=== PATIENT | female | born 1985 | race Caucasian/White ===

== ENCOUNTER 2021-04-11 09:01 | Outpatient (REF) | payer MEDICAID, SELFPAY ==
--- NOTE | ~2021-04-11 | XR_ITS ---
EXAMINATION: XR FOOT, LEFT CLINICAL INFORMATION: Left toe pain. COMPARISON: None TECHNIQUE: AP, lateral, and oblique views of the left foot. FINDINGS: The bones and soft tissues are normal. No fracture. Alignment is anatomic. Joint spaces are maintained. XR/XR foot LT min 3V IMPRESSION: Unremarkable examination.
--- NOTE | ~2021-04-11 | XR_ITS ---
EXAMINATION: XR CERVICAL SPINE CLINICAL INFORMATION: Cervicalgia. COMPARISON: None TECHNIQUE: AP, lateral, open-mouth, and bilateral oblique views of the cervical spine. FINDINGS: Straightening of the normal cervical lordosis, which may be positional or related to muscular spasm. Normal atlantoaxial alignment. No acute fracture or subluxation. No loss of vertebral body or intervertebral disc height. No significant neural foraminal stenosis. No lytic or blastic osseous lesion. Unremarkable prevertebral soft tissues. XR/XR cervical spine 4V IMPRESSION: Straightening of the normal cervical lordosis, which may be positional or related to muscular spasm.
== END 2021-04-11 09:02 | disposition home or self-care (01) ==
LOC: HO.XRAY 09:01
PROVIDERS: PCP Internal Medicine Geriatric Medicine; Visit Provider Nurse Practitioner Family
DX: M54.2 Cervicalgia (principal); M79.672 Pain in left foot
CPT/HCPCS: 72050; 73630

== ENCOUNTER 2021-06-06 15:00 | Outpatient (RCR) | payer MEDICAID, SELFPAY | END 2021-06-20 17:31 | disposition home or self-care (01) | LOC: HO.PT 15:00 | PROVIDERS: PCP Internal Medicine Geriatric Medicine; Visit Provider Nurse Practitioner Family | DX: M54.2 Cervicalgia (principal) | CPT/HCPCS: 97012; 97110; 97140; 97161; 97530 ==

== ENCOUNTER → 2022-04-28 09:26 | Outpatient (BNVA) | payer MEDICAID, SELFPAY | PROVIDERS: PCP Internal Medicine Geriatric Medicine; Visit Provider Physician Assistant | DX: M77.8 Other enthesopathies, not elsewhere classified (principal) | CPT/HCPCS: 99202 ==

== ENCOUNTER → 2022-09-04 10:45 | Outpatient (BNVA) | payer MEDICAID, SELFPAY | PROVIDERS: PCP Internal Medicine Geriatric Medicine; Visit Provider Physician Assistant | DX: M77.8 Other enthesopathies, not elsewhere classified (principal) | CPT/HCPCS: 20551; 99212; J1020; J1040 ==

== ENCOUNTER 2022-10-09 10:14 | Outpatient (REF) | payer MEDICAID, SELFPAY ==
--- NOTE | ~2022-10-09 | XR_ITS ---
EXAMINATION: XR HIP, RIGHT CLINICAL INFORMATION: Pain. COMPARISON: None available. TECHNIQUE: Two views of the right hip. FINDINGS: Bones and soft tissues are normal. No fracture. Alignment is anatomic. Hip joint space is maintained. XR/XR hip RT w PEL1V IMPRESSION: Normal right hip.
== END 2022-10-09 10:15 | disposition home or self-care (01) ==
LOC: HO.HOSX 10:14
PROVIDERS: Visit Provider Physician Assistant
DX: M70.61 Trochanteric bursitis, right hip (principal)
CPT/HCPCS: 20610; 73502; 99212; J1040

== ENCOUNTER 2022-10-09 11:30 | Outpatient (RCR) | payer MEDICAID, SELFPAY ==
--- NOTE | 2022-09-18 09:58 | MHC.OT.EP ---
[address] [phone] Occupational Therapy Plan of Care Date of Evaluation: 09/18/22 Diagnosis: Right Elbow Pain Pain Location: Right lateral elbow and moreso in dorsal forearm 4/10 at rest, 8/10 w/ heavier use Pain Score: 4 Pain Scale Used: Numeric (0 - 10) Aggravating Factors: Heavier lifting and use, coldness to elbow Alleviating Factors: Some relief w/ cortisone injection, no change notes w/ CFB or pain patches, prefers not to take pain medicine (some relief when she takes it) Assessment: 36 yo right hand dominant female presents w/ right elbow and forearm pain. She was seen in [facility] and given CFB and Cortisone injection. She has had some relief w/ injection, but notices no significant change w/ CFB wear during work, at times making it worse w/ prolonged wear. On assessment, she reports relief in lateral epicondyle, but has more pain, tenderness and fatigue in dorsal forearm. She has good range, sensation and coordination, but some weakness in gross grasp and wrist extension, w/ tenderness primarily over mobile wad. She will benefit from cont'd therapy services for treatment of right forearm overuse injury, I anticipate she will do well. Frequency and Duration: The patient will be seen 2/xwk for 4 weeks Short Term Goals: Ind w/ HEP Good follow through w/ joint protection/activity modification Trial nighttime orthosis for relief of extensors Prison Goals: Right gross grasp >40lb w/ zero to low pain Pt to demo lift and carry >20lb w/ minimal discomfort in right elbow/forearm Progress to isotonic strengthening prograrm Treatment Plan: Therapeutic Exercise Therapeutic Activity Home Exercise Program Splinting Patient Education ADL Training Ultrasound MHP Soft Tissue Mobilization Kinesiotaping Nighttime resting wrist orthosis Electronically Signed By: Mechelle Arana OTR/Nicolas CHT Please Sign and return to therapist. Thank you once again for your referral.
--- NOTE | 2022-10-13 07:37 | MHC.OT.DC ---
[address] [phone] F: [phone] Occupational Therapy Discharge Note Patient Name: Dottie Reynoso Provider: Cheryl Kaur PA-C Diagnosis: Right Elbow Pain Date of Evaluation: 09/18/22 Date of Discharge: 10/10/22 Treatments to Date: 5 Discharge Status: Achieved Goals Improved Function Independent with HEP Discharge Summary: Melania was referred to OT w/ right lateral elbow and dorsal forearm pain, likely overuse from heavy lifting w/ work tasks. She has been progressing well and is pain free at most times, meeting all her goals. She still gets mild pain w/ end range extension and gripping and reports some weakness w/ opening containers and lifting objects (like placing boxes up above head) but has good awareness of joint protection and avoiding aggravating activities. She would ultimately benefit from change in job positions if they are able to accomodate. Electronically Signed By: JARET Rojas/Nicolas CHT Reviewed/agree with student documentation: Therapist: Please Sign and return to therapist, thank you for your referral.
== END 2022-10-13 07:39 | disposition home or self-care (01) ==
LOC: HO.OT 11:30
PROVIDERS: PCP Internal Medicine Geriatric Medicine; Visit Provider Physician Assistant
DX: M77.8 Other enthesopathies, not elsewhere classified (principal)
CPT/HCPCS: 29125; 97035; 97110; 97140; 97165; 97760

== ENCOUNTER → 2022-11-09 11:34 | Outpatient (BNVA) | payer MEDICAID, SELFPAY | PROVIDERS: PCP Internal Medicine Geriatric Medicine; Visit Provider Physician Assistant | DX: M70.61 Trochanteric bursitis, right hip (principal) | CPT/HCPCS: 99212 ==

== ENCOUNTER 2023-01-08 09:00 | Outpatient (RCR) | payer MEDICAID, SELFPAY ==
--- NOTE | 2022-12-08 14:49 | MHC.PT.EP ---
[facility] [place] Office [place] Office [place] Office [address] Yudy Mena [address] [phone] F: [phone] F: [phone] F: [phone] F: [phone] Physical Therapy Plan of Care Date of Evaluation: Date of Surgery: Diagnosis: RIGHT hip greater trochanteric bursitis Assessment: Patient is a 36 y.o. female who is referred to PT by Cheryl Kaur PA-C, with Dx of RIGHT hip greater trochanteric bursitis. Patient impairments include pain, weakness, gait abnormality. Patient current functional limitations are pain with sleeping, pain with prolonged walking, pain and difficulty with squating and lifting, difficulty sitting on the floor. Patient will benefit from skilled PT to address aforementioned impairments and functional limitations to meet established goals. Frequency and Duration: The patient will be seen 2x/week for 4 weeks Short Term Goals: 2 weeks Patient demonstrates consistency and independence with HEP to self manage symptoms. Patient reports reduction in pain level 4/10 to be able to sleep on involved side. 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 Patient presents with increased R hip flexion 5/5 to be able to get on/off floor without difficulty. Treatment Plan: Modalities to reduce pain, spasms and effusion. Manual therapy to restore motion and function. Therapeutic exercise to improve strength and flexibility. Neuromuscular re-education for posture and balance. Therapeutic activities to return to functional activities of daily living. Electronically signed by: Fish Greer, PT, DPT Please sign and return to therapist. Thank you for your referral.
--- NOTE | 2023-01-26 09:39 | MHC.PT.DC ---
[facility] [place] Office [place] Office [place] Office [address] Yudy Mena 140 [facility] [phone] F: [phone] F: [phone] F: [phone] F: [phone] Physical Therapy Discharge Report Diagnosis: RIGHT hip greater trochanteric bursitis Date of Surgery: Date of Evaluation: 12/08/22 Date of Discharge: 01/26/23 Treatments to Date: 4 Cancellations to Date: 0 No Shows to Date: 5 Discharge Status: Independent with HEP Visit Non-compliance Discharge Summary: Patient ceased attending physical therapy on her own accord and is discharged at this time. She has an independent HEP and was educated on and practice proper lifting mechanics. Electronically signed by: Fish Greer PT, DPT Please sign and return to therapist. Thank you for your referral.
== END 2023-01-26 09:40 | disposition home or self-care (01) ==
LOC: HO.PT 09:00
PROVIDERS: PCP Internal Medicine Geriatric Medicine; Visit Provider Physician Assistant
DX: M70.61 Trochanteric bursitis, right hip (principal)
CPT/HCPCS: 97110; 97140; 97161; 97530

== ENCOUNTER 2023-07-06 13:13 | Outpatient (AMB) | payer MEDICAID, SELFPAY ==
--- NOTE | 2023-07-06 13:15 | MHC.OFFVIS ---
Intake Intake Visit Reasons: ov- Right hip Bursitis Intake Note: Dottie 37 yr old female presents today for her right hip s/p injection from 10/09/22. Patient states that her last injection didnt give her relief. She states that she would like to repeat her injection to see if it would work. Allergies No Known Allergies [No Known Allergies*] Allergy (Verified 11/09/22 11:41) HPI ov- Right hip Bursitis HPI Details 37-year-old right hand dominant female, who is Latvian speaking, presents in the office today for a follow up of right hip pain. I last saw the patient in the office on 11/09/2022 where she was prescribed Diclofenac 75 mg PO BID PRN and referred to physical therapy. She has a cortisone injection in the right hip on 10/09/2022. 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 No ecchymosis, erythema, or edema. Full hip ROM in all planes. Tenderness to palpation over the greater trochanteric bursa. 5/5 strength with resisted hip flexion, knee extension, abduction, and abduction. Able to perform straight leg raise. NVI. Assessment & Plan Assessment & Plan (1) Greater trochanteric bursitis of right hip: Code(s): M70.61 - Trochanteric bursitis, right hip Plan Ms. Tray Reynoso is a 37-year-old right hand dominant female, who is Latvian speaking, presents in the office today for a follow up of right hip pain. I last saw the patient in the office on 11/09/2022 where she was prescribed Diclofenac 75 mg PO BID PRN and referred to physical therapy. She has a cortisone injection in the right hip on 10/09/2022. The patient is going to re-attend physical therapy. She will be prescribed a topical cream. I have placed a referral to Pain Management. Follow up will be PRN, or sooner if needed. Orders: Orders PT Evaluation and Treatment Today M70.61 - Trochanteric bursitis, right hip Referrals Pain Management Referral M70.61 - Trochanteric bursitis, right hip Patient Instructions: Scribed for Cheryl Kaur PA-C by Keyonna Hall medical van driver, on 07/06/2023 at 1:38 pm, EST. Coding Level of Care Code Est Pt Level 3 (96956) Diagnoses Greater trochanteric bursitis of right hip M70.61
== END 2023-07-06 13:40 | disposition home or self-care (01) ==
PROVIDERS: PCP Internal Medicine Geriatric Medicine; Visit Provider Physician Assistant
DX: M70.61 Trochanteric bursitis, right hip (principal)
CPT/HCPCS: 99213

== ENCOUNTER → 2023-07-06 13:13 | Outpatient (BNVA) | payer MEDICAID, SELFPAY | PROVIDERS: PCP Internal Medicine Geriatric Medicine; Visit Provider Physician Assistant | DX: M70.61 Trochanteric bursitis, right hip (principal) | CPT/HCPCS: 99212 ==

== ENCOUNTER 2024-02-28 08:48 | Outpatient (REF) | payer MEDICAID, SELFPAY ==
[2024-02-28 09:22] LABS: MANUAL DIFF FLAG NO
[2024-02-28 09:37] LABS: Basophils Percent Auto 0.3 % (0-2); Eosinophils Absolute Auto 0.1 X10*3/uL (0.0-0.4); Eosinophils Percent Auto 0.7 % (0-4); Hematocrit 41.3 % (37.0-47.0); Hemoglobin 14.3 g/dl (12.0-16.0); Imm Gran Abs Auto 0.04 X10*3/uL (0.00-0.03); Imm Gran Pct Auto 0.6 % (0.0-0.4); Lymphocytes Absolute Auto 1.8 X10*3/uL (1.2-4.9); Lymphocytes Percent Auto 25.4 % (20-40); Mean Corpuscular HGB Conc 34.6 g/dl (31.0-35.0); Mean Corpuscular Hemoglobin 30.8 pg (27.0-33.0); Mean Platelet Volume 10.8 fL (9.4-12.3); Monocytes Absolute Auto 0.5 X10*3/uL (0.1-1.2); Monocytes Percent Auto 6.9 % (2-11); Neutrophils Absolute Auto 4.7 x10*3/uL (2.0-8.3); Neutrophils Percent Auto 66.1 % (45-73); Platelet Count 290 X10*3/uL (160-400); Red Blood Count 4.64 X10*6/uL (4.20-5.50); Red Cell Distribution Width 12.5 % (11.0-16.0); White Blood Count 7.1 X10*3/uL (4.8-10.8)
[2024-02-28 10:11] LABS: Alanine Aminotransferase 20 U/L (0-31); Albumin Level 4.3 g/dL (3.5-5.0); Alkaline Phosphatase 104 U/L (39-117); Anion Gap 11 (12-20); Aspartate Amino Transferase 22 U/L (5-31); Bilirubin Total 0.5 mg/dL (0.0-1.0); Blood Urea Nitrogen 7 mg/dL (9-16); Calcium 9.2 mg/dL (8.4-10.2); Carbon Dioxide 27 mmol/L (22-29); Chloride 108 mmol/L (96-108); Estimated Glomerular Filt Rate > 60; Glucose Random 106 mg/dL (60-115); Potassium 3.5 mmol/L (3.3-5.1); Sodium 142 mmol/L (135-145); Total Protein 7.6 g/dL (6.5-8.0)
[2024-02-28 10:29] LABS: TSH reflex Free T4 1.17 uIU/mL (0.32-4.0)
[2024-02-28 10:36] LABS: Estimated Average Glucose 105 mg/dL; Hemoglobin A1c % 5.3 % (<6.0)
[2024-03-02 08:53] LABS: TS Negative Control Passed; TS Panel A 0; TS Panel B 0; TS Positive Control Passed; TSpotTB Negative (Negative)
== END 2024-02-28 08:49 | disposition home or self-care (01) ==
LOC: HO.LAB 08:48
PROVIDERS: PCP Internal Medicine Geriatric Medicine; Visit Provider Internal Medicine Geriatric Medicine
DX: Z11.1 Encounter for screening for respiratory tuberculosis (principal); I10 Essential (primary) hypertension; R63.5 Abnormal weight gain
CPT/HCPCS: 36415; 80053; 83036; 84443; 85025; 86481

== ENCOUNTER 2024-12-11 08:27 | Emergency (ER) | payer MEDICAID, SELFPAY ==
--- NOTE | ~2024-12-11 | XR_ITS ---
EXAMINATION: XR LUMBOSACRAL SPINE CLINICAL INFORMATION: back pain, pain after lifting COMPARISON: 02/21/2019. TECHNIQUE: Three views of the lumbosacral spine. FINDINGS: No scoliosis. Normal lordosis. Normal alignment. No fracture, compression deformity, or suspicious bone lesion. Normal facet alignment without evidence of significant facet arthropathy. Minimal disc space narrowing noted L5-S1. Disc spaces otherwise normal. The sacrum appears intact. The SI joints have a normal appearance. There is no discrete soft tissue abnormality. XR/XR lumbar spine 2-3V IMPRESSION: 1. No acute bony abnormalities. 2. Early degenerative disc disease L5-S1. Electronically signed by: Jaswinder Huang MD 12/11/2024 09:09 AM EDT
[2024-12-11 08:29] VITALS: BP 171/85; PULSE 86; RESP 18; TEMP 36.4; O2SAT 97; BMI 26.6
--- NOTE | 2024-12-11 08:35 | ED_ITS ---
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 Pain goes across the back. She has no numbness, weakness, loss of control of bowel or bladder, no saddle anesthesia. She is not on IVDA. She has no abdominal pain. She has taken no medications for it. It hurts to walk. MD elicited complaint: back injury Pertinent past history: other Onset (ago): day(s) (1) Timing: progressively worsening Severity: moderate Similar Symptoms Previously: No Quality: dull, aching and throbbing Location: lumbar spine Radiation: none Exacerbating factors: movement and coughing/sneezing Relieving factors: immobilization Context: while lifting Associated symptoms: denies other symptoms Work related injury: Yes Related Data Home Medications ?Medication ?Instructions ?Recorded ?Confirmed ibuprofen 600 mg tablet 600 mg PO TID PRN pain 04/28/22 Previous Rx's ?Medication ?Instructions ?Recorded diclofenac sodium 75 mg 75 mg PO BID PRN pain 30 days #60 04/28/22 tablet,delayed release tabs lidocaine 4 % topical patch 1 patch topical Q24H PRN pain #10 11/09/22 ea diclofenac sodium 75 mg 75 mg PO BID PRN for pain #60 tabs 08/05/23 tablet,delayed release cyclobenzaprine 10 mg tablet 10 mg PO TID PRN muscle spasm #20 12/11/24 tabs lidocaine 5 % topical patch 1 patch topical DAILY #30 ea 12/11/24 Allergies Allergy/AdvReac Type Severity Reaction Status Date / Time No Known Allergies Allergy Verified 12/11/24 08:32 [No Known Allergies*] Review of Systems Review of Systems: Constitutional : No Weight loss, No Fever, No Chills, ENT/Mouth : No Hearing loss, No Ear Pain, No Nasal Congestion, No Sinus Pain, No Hoarseness, No sore throat, No Rhinorrhea, No Swallowing Difficulty Cardiovascular : No Chest Pain, No SOB Respiratory : No Cough, No Dyspnea Gastrointestinal : No Nausea, No Vomiting, No Diarrhea, No abdominal Pain, No Hematochezia, No Melena Genitourinary : No Dysuria, No Urinary Frequency, No Hematuria, No Urinary Incontinence, Musculoskeletal : positive back pain Skin : No Skin Lesions, No rash Neuro : No Weakness, No Numbness, No Paresthesias, no loss of bowel or bladder incontinence, no saddle anesthesia all other systems reviewed and are negative [facility] Past Medical History Attestation statement: The following information was validated with the patient. 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 Oriented X3. No acute distress. Eyes: Pupils equal, round and reactive to light. ENT: Pharynx normal. Neck: Normal inspection. Neck supple. CVS: Normal heart rate and rhythm. Pulses normal. Respiratory: No respiratory distress. Breath sounds normal. Abdomen: Soft and nontender. Back: ttp along bilateral lumbar paraspinals she has a yellow old appearing bruise on R PSIS. There is no hematoma and it is yellow in color Skin: Skin warm and dry. Normal skin color. Normal skin turgor. Extremities: No lower extremity edema. No calf ttp Neuro: Oriented X 3. No motor deficit. No sensory deficit. CN2-12 intact no clonus, 2+ DTR in patella and achilles L5 5/5 bilaterally. SILT intact inner thigh Medications Administered Discontinued Medications Generic Name Dose Route Start Last Admin Trade Name Freq PRN Reason Stop Dose Admin Cyclobenzaprine HCl 10 mg 12/11/24 08:45 12/11/24 09:03 Cyclobenzaprine Hcl 10 Mg Tablet PO 12/11/24 08:46 10 mg ONCE ONE Administration Ketorolac Tromethamine 30 mg 12/11/24 08:45 12/11/24 09:03 Ketorolac Tromethamine 30 Mg/Ml Vial IM 12/11/24 08:46 30 mg ONCE ONE Administration Lidocaine 1 patch 12/11/24 08:45 12/11/24 09:04 Lidocaine 4 % Patch Adh..Patch TRANSDERMA 12/11/24 08:46 1 patch ONCE ONE Administration Protocol Medical Decision Making Medical Decision Making MDM Narrative: 38 yo female with PMH of HTN, tendonitis not on blood thinners here with c/o low back pain after 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 Her bruise is old and not from yesterday during injury - xrays ordered, pain control will DC with work restrictions and back pain control. Differential Diagnosis Differential Diagnoses: The differential diagnosis associated with the presentation includes back strain, contusion, MSK spasm Admission/Observation Consideration of admission/observation: Escalation of care including admission/observation considered able to walk can be DC at home Independent Interpretation I performed an independent interpretation of an: Plain X-Ray (no fx) Radiology Impression Discussion of test interpretation with radiology: I have reviewed the radiologist's reading. External Record Review External record reviewed: Outpatient record Prescription Management I considered prescription management with: Pain Medication and Other Discharge Plan Discharge Clinical Impression: Strain of lumbar region Patient Disposition: Home, Self-Care Instructions: Low Back Strain (ED), Lower Back Exercises (ED) Additional Instructions: return for numbness, weakness, loss of control of bowel or bladder follow up with your doctor is not better in 1 week you may need physical therapy FINDINGS: No scoliosis. Normal lordosis. Normal alignment. No fracture, compression deformity, or suspicious bone lesion. Normal facet alignment without evidence of significant facet arthropathy. Minimal disc space narrowing noted L5-S1. Disc spaces otherwise normal. The sacrum appears intact. The SI joints have a normal appearance. There is no discrete soft tissue abnormality. XR/XR lumbar spine 2-3V IMPRESSION: 1. No acute bony abnormalities. 2. Early degenerative disc disease L5-S1. Prescriptions: New cyclobenzaprine 10 mg tablet 10 mg PO TID PRN (Reason: muscle spasm) Qty: 20 0RF lidocaine 5 % adhesive patch,medicated 1 patch topical DAILY Qty: 30 0RF Rx Instructions: leave on most painful area for up to 12 hrs No Action diclofenac sodium 75 mg tablet,delayed release (DR/EC) 75 mg PO BID PRN (Reason: for pain) Qty: 60 0RF ibuprofen 600 mg tablet 600 mg PO TID PRN (Reason: pain) diclofenac sodium 75 mg tablet,delayed release (DR/EC) 75 mg PO BID PRN (Reason: pain) 30 Days Qty: 60 0RF lidocaine 4 % adhesive patch,medicated 1 patch topical Q24H PRN (Reason: pain) Qty: 10 0RF Rx Instructions: may leave on for up to 12 hrs Referrals: Name,MD Francis [Primary Care Provider] - (if not better in 1 week consult your doctor) Stand Alone Forms: Work/School Release Print Language: Frisian
[2024-12-11] MEDS: Cyclobenzaprine HCl 10 MG TABLET PO (09:03)
[2024-12-11] MEDS: Ketorolac Tromethamine 30 MG/ML VIAL IM (09:03)
[2024-12-11] MEDS: Lidocaine 4 % Patch ADH..PATCH 1 PATCH TRANSDERMA (09:04)
[2024-12-11 09:34] VITALS: BP 171/85; PULSE 86; RESP 18; TEMP 36.4; O2SAT 97
--- OUTSIDE RECORDS SUMMARY | 2024-12-11 09:37 | XMS_ITS | Encounter Summary ---
Author Organization [employer] Address [address] [facility] 7 [place] [address] Care Team Providers Care Personal Care Assistant Name Role Phone Name, Francis SILVA Primary Care Provider [phone] Reason for Visit * Reason Onset Date Comments Med Refill 10/30/2024 Encounter Details Date Type Department Care Team ([facility] st Contact Info) Description 10/30/2024 Refill [facility] [address] [place], [place] [id number] Name, MD Francis [address] [place] [address] Hypertension, essential Social History Tobacco Use Types Packs/Day Years Used Date Smoking Tobacco: Never Passive Smoke Exposure: Never Alcohol Use Standard Drinks/Week Comments Never 0 (1 standard drink = 0.6 oz pur e alcohol) Depression Answer Date Recorded Patient Health Questionnaire-9 Score 0 02/25/2024 Patient Health Questionnaire-9 Score 0 02/25/2024 Last PHQ-9: Questionnaire Data Not on file 0 02/25/2024 Housing Stability Answer Date Recorded What is your housing situation today? I have devorah curran 02/15/[address] you li ve. Do you have problems with any of the following? None of the above 02/15/2024 Food Insecurity Answer Date Recorded Within the past 12 months, y ou worried that your food would run out before you got money to buy more: Never True 02/15/2024 Within the past 12 months,th e food you bought just didn't last and you didn't have enough money to get more: Never True Transportation Answer Date Recorded In the past 12 months, has l ack of transportation kept you from medical appts, meetings, work or from getting things needed for daily living? No 02/15/2024 Utilities Answer Date Recorded In the past 12 months, has t he electric, gas, oil or water company threatened to shut off services in your home? No 02/15/2024 Depression Answer Date Recorded Patient Health Questionnaire-2 Score 0 02/25/2024 Internet Access Answer Date Recorded Internet Access Q1 Yes 03/24/2024 Internet Access Q2 Not on file 03/24/2024 Comments Unknown Sex and Gender Information Value Date Recorded Sex Assigned at Female 05/22/2022 10:32 AM EDT Legal Sex Female 10:32 AM EDT Gender Identity Female 05/22/2022 10:32 AM EDT Sexual Orientation Don't know 05/22/2022 10 :32 AM EDT documented as of this encounter Plan of Treatment Not on file documented as of this encounter Goals Goal Patient Goal Type Associated Problems Recent Progress Patient-Stated? Author Blood Pressure < 140/90 Blood Pressure 162/99( 025 11:54 AM EST) No Puia, Ana M, PharmD Record your blood pressure two to three times weekly Blood Pressure No Puia, Ana M, PharmD documented as of this encounter Visit Diagnoses Diagnosis Hypertension, essential Unspecified essential hypertension documented in this encounter Additional Health Concerns Assessment Noted Time PHQ-9 Depression Total Score: 0 02/25/20 24 3:01 PM EDT documented as of this encounter Care Teams Personal Care Assistant Relationship Specialty Start Date End Date Name, MD Francis [address] [place] [id number] PCP - General Family Medicine 03/15/17 documented as of this encounter
--- OUTSIDE RECORDS SUMMARY | 2024-12-11 09:37 | XMS_ITS | Encounter Summary ---
Author Organization [employer] Address [address] [facility] 7t [place] [address] Care Team Providers Care Cheese Factory Worker Name Role Phone Name, Francis SILVA Primary Care Provider [phone] Encounter Details Date Type Department Care Team (Late st Contact Info) Description 12/11/2024 Orders Only [facility] External Provider, [facility] Social History Tobacco Use Types Packs/Day Years [...] M, PharmD documented as of this encounter Procedures Procedure Name Priority Date/Time Associated Diagnosis Comments XR LUMBAR SPINE 2-3 VIEWS Routine 12/11/2024 8:45 AM EDT documented in this encounter Results * XR Lumbar Spine 2-3 Views (12/11/2024 8:45 AM EDT) Anatomical Region Laterality Modality Spine, L-spine Radiographic Lilli ging 12/11/2024 8:45 AM EDT Narrative 12/11/2024 9:12 AM EDT ? [facility] ?[address] ?[place] [address] ?XRay Report ? Signed ? Patient: Tray Reynoso,Dottie L ?MR ?? #: [id number] ? : 1985 ?Acct:[id number] ? Age/Sex: 38 / F ?ADM Date: 05/22/25 ? Loc: HO.ED ? Attending : ? Ordering Physician: Jessica Wesley DO ?? Date of Service: 12/11/24 ?? Procedure(s): XR lumbar spine 2-3V ?? Accession Number(s): [id number] ? cc: Jessica Wesley DO; Name,Francis SILVA ? EXAMINATION: ?? XR LUMBOSACRAL SPINE ? CLINICAL INFORMATION: ?? back pain, pain after lifting ? COMPARISON: ?? 02/21/2019. ? TECHNIQUE: ?? Three views of the lumbosacral spine. ? FINDINGS: ?? No scoliosis. Normal lordosis. Normal alignment. ?? No fracture, compression deformity, or suspicious bone lesion. ?? Normal facet alignment without evidence of significant facet ?? arthropathy. ?? Minimal disc space narrowing noted L5-S1. Disc spaces otherwise normal. ? The sacrum appears intact. The SI joints have a normal appearance. ? There is no discrete soft tissue abnormality. ? XR/XR lumbar spine 2-3V ?? IMPRESSION: ? 1. No acute bony abnormalities. ?? 2. Early degenerative disc disease L5-S1. ? Electronically signed by: ??Jaswinder Huang MD ??12/11/2024 09:09 AM EDT RP ? Dictated By: ?Jaswinder Huang MD ? Signed By: ?<Electronically signed by Jaswinder Huang MD in OV> ?12/11/24 0909 ? DD/ 0845 ? TD/TT: 12/11/24 0901 ? Hydroelectric Production Manager: ? Procedure Note Tara, Nga - 12/11/2024 [place] [address] XRay Report Signed Patient: Dottie Bonilla LMR #: [id number] : 1985Acct:[id number] Age/Sex: 38 / FADM Date: 12/11/24 Loc: HO.ED Attending Dr: Ordering Physician: Jessica Wesley DO Date of Service: 12/11/24 Procedure(s): XR lumbar spine 2-3V Accession Number(s): [id number] cc: Jessica Wesley DO; Name,Francis SILVA EXAMINATION: XR LUMBOSACRAL SPINE CLINICAL INFORMATION: back pain, pain after lifting COMPARISON: 02/21/2019. TECHNIQUE: Three views of the lumbosacral spine. FINDINGS: No scoliosis. Normal lordosis. Normal alignment. No fracture, compression deformity, or suspicious bone lesion. Normal facet alignment without evidence of significant facet arthropathy. Minimal disc space narrowing noted L5-S1. Disc spaces otherwise normal. The sacrum appears intact. The SI joints have a normal appearance. There is no discrete soft tissue abnormality. XR/XR lumbar spine 2-3V IMPRESSION: 1. No acute bony abnormalities. 2. Early degenerative disc disease L5-S1. Electronically signed by: Jaswinder Huang MD 12/11/2024 09:09 AM EDT RP Dictated By: Jaswinder Huang MD Signed By: <Electronically signed by Jaswinder Huang MD in OV> 12/11/2409 DD/ TD/TT: 12/11/24900 Hydroelectric Production Manager: [facility] External Provider IMG XR PROCEDURES Edited Result - Final documented in this encounter Visit Diagnoses Not on filedocumented in this encounter Additional Health Concerns Assessment Noted Time PHQ-9 Depression Total Score: 0 02/25/20 24 3:01 PM EDT documented as of this encounter Care Teams Cheese Factory Worker Relationship Specialty Start Date End Date Name, MD Francis [address] [place] [address] PCP - General Family Medicine 03/15/17 documented as of this encounter
--- OUTSIDE RECORDS SUMMARY | 2024-12-11 09:37 | XMS_ITS | Encounter Summary ---
Author Organization [employer] Address [address] [facility] 7 [place] [address] Care Team Providers Care Tax Auditor Name Role Phone Name, Francis SILVA Primary Care Provider [phone] Reason for Visit * Reason Onset Date Comments Med Refill 06/01/2024 Encounter Details Date Type Department Care Team ([facility] st Contact Info) Description 06/01/2024 Refill [facility] [address] [place], [place] [phone] Name, MD Francis [address] [place] [address] Social History Tobacco Use Types Packs/Day Years [...] documented as of this encounter Visit Diagnoses Not on filedocumented in this encounter Additional Health Concerns Assessment Noted Time PHQ-9 Depression Total Score: 0 02/25/20 24 3:01 PM EDT documented as of this encounter Care Teams Tax Auditor Relationship Specialty Start Date End Date Name, MD Francis [address] [place] [id number] PCP - General Family Medicine 03/15/17 documented as of this encounter
--- OUTSIDE RECORDS SUMMARY | 2024-12-11 09:37 | XMS_ITS | Encounter Summary ---
Author Organization [employer] Address [address] [facility] 7 [place] [address] Care Team Providers Care Product Controller Name Role Phone Name, Francis SILVA Primary Care Provider [phone] Reason for Visit * Reason Onset Date Comments Med Refill 07/28/2024 Encounter Details Date Type Department Care Team ([facility] st Contact Info) Description 07/28/2024 Telephone [facility] [address] [place], [place] [phone] Name, MD Francis [address] [place] [address] Med Refill Social History Tobacco Use Types Packs/Day Years [...] AM EDT documented as of this encounter Miscellaneous Notes * Telephone Encounter - Symone Rodriguez - 07/28/2024 4:51 PM EST TC from pt requesting medication refill. Medications needing refill : Semaglutide-Weight Management (Wegovy) 1 MG/0.5ML solution auto-injector To be sent to: [facility] documented in this encounter Plan of Treatment Not on [...] documented as of this encounter Care Teams Product Controller Relationship Specialty Start Date End Date Name, MD Francis [address] [place] [address] PCP - General Family Medicine 03/15/17 documented as of this encounter
--- OUTSIDE RECORDS SUMMARY | 2024-12-11 09:37 | XMS_ITS | Encounter Summary ---
Author Organization [employer] Address [address] [facility] 7 [place] [address] Care Team Providers Care Commercial Field Inspector Name Role Phone Name, Francis SILVA Primary Care Provider [phone] Ana M Gr PharmD Unavailable [phone] Reason for Visit * Reason Onset Date Comments Created In Error 04/02/2024 Encounter Details Date Type Department Care Team ([facility] st Contact Info) Description 04/02/2024 Telephone [facility] [address] [place], [place] [phone] Name, MD Francis [address] [place] [address] Created In Error Social History Tobacco Use Types Packs/Day Years [...] documented as of this encounter Care Teams Commercial Field Inspector Relationship Specialty Start Date End Date Name, MD Francis [address] [place] [address] PCP - General Family Medicine 03/15/17 Puia, Ana M, PharmD [address] [place] [address] Pharmacist Internal Medicine 02/02/23 04/24/24 documented as of this encounter
--- OUTSIDE RECORDS SUMMARY | 2024-12-11 09:37 | XMS_ITS | Encounter Summary ---
Author Organization [employer] Address [address] [place] [address] 7 [place] [address] Care Team Providers Care Recruiter Name Role Phone Renée, Francis SILVA Primary Care Provider [phone] Ana M Gr PharmD Unavailable [phone] Reason for Visit * Reason Onset Date Comments Medication Question 01/01/2023 Encounter Details Date Type Department Care Team (Late st Contact Info) Description 01/01/2023 Telephone [facility] [address] [place], [place] [phone] Name, MD Francis [address] [place], [place] [phone] Medication Question Social History Tobacco Use Types Packs/Day Years Used Date Smoking Tobacco: Never Alcohol Use Standard Drinks/Week Comments Never 0 (1 standard drink = 0.6 oz pur e alcohol) Depression Answer Date Recorded Patient Health Questionnaire-9 Score 5 11/30/2022 Depression Answer Date Recorded Patient Health Questionnaire-2 Score 2 11/30/2022 Comments Unknown Sex and Gender Information Value Date Recorded Sex Assigned at Female 05/22/2022 10:32 AM EDT Legal Sex Female 10:32 AM EDT Gender Identity Female 05/22/2022 10:32 AM EDT Sexual Orientation Don't know 05/22/2022 10 :32 AM EDT documented as of this encounter Miscellaneous Notes * Telephone Encounter - Victor Manuel Mendes RN - 01/01/2023 4:44 PM EDT T/C to [phone] through [employer] id - [id number] for below message, pt. States she is all set. Pt. Advised to give call back on [phone] if any questions or concerns. * Telephone Encounter - Michelle Wagnernez - 01/01/2023 8:20 AM EDT Tc from patient requesting a call back, in regards to medications due to upcoming surgery in March. Patient speaks serbian. documented in this encounter Plan of Treatment Not on file documented as of this encounter Visit Diagnoses Not on filedocumented in this encounter Additional Health Concerns Assessment Noted Time PHQ-9 Depression Total Score: 5 12/01/19 23 10:40 AM EDT documented as of this encounter Care Teams Recruiter Relationship Specialty Start Date End Date Name, MD Francis [address] [place] [address] PCP - General Family Medicine 03/15/17 Ana M Gr PharmD [address] [place] [address] Pharmacist Internal Medicine 02/02/23 04/24/24 documented as of this encounter
--- OUTSIDE RECORDS SUMMARY | 2024-12-11 09:37 | XMS_ITS | Encounter Summary ---
Author Organization [employer] Address [address] [facility] 7 [place] [address] Care Team Providers Care Enrolled Nurse Name Role Phone Name, Fracnis SILVA Primary Care Provider [phone] Reason for Visit * Reason Onset Date Comments Med Refill 06/29/2024 Encounter Details Date Type Department Care Team ([facility] st Contact Info) Description 06/29/2024 Refill [facility] [address] [place] [address] Name, MD Francis [address] [place] [address] Social History Tobacco Use Types Packs/Day Years [...] documented as of this encounter Care Teams Enrolled Nurse Relationship Specialty Start Date End Date Name, MD Francis [address] [place] [address] PCP - General Family Medicine 03/15/17 documented as of this encounter
--- OUTSIDE RECORDS SUMMARY | 2024-12-11 09:37 | XMS_ITS | Clinical Summary ---
Author Organization [employer] Address [address] [place] [address] Care Team Providers Care Hydrogenation Operator Name Role Phone Name, Francis SILVA Primary Care Provider [phone] Surgical History Surgery Date Site/Laterality Comments TUBAL LIGATION PROCEDURE: HISTORICAL TUBAL LIGATION HYSTERECTOMY N/A PROCEDURE: HISTORICAL HYSTERECTOMY; COMMENT: Abdominal with B/L salpingectomy; path benign Medical History Medical History Date Comments Patient denies medical problems DX:Patient denies medical problems Family History Medical History Relation Name Comments No Known Problems Brother Thyroid disease Father Hypertension Maternal Grandmother Thyroid disease Mother Hypertension Paternal Grandfather Hypertension Paternal Grandmother Breast cancer Neg Hx Colon cancer Neg Hx Ovarian cancer Neg Hx Pancreatic cancer Neg Hx Prostate cancer Neg Hx Uterine cancer Neg Hx Relation Name Status Comments Brother Alive Father Maternal Grandmother Mother Paternal Grandfather Paternal Grandmother Social History Tobacco Use Types Packs/Day Years Used Date Smoking Tobacco: Never Smokeless Tobacco: Never Alcohol Use Standard Drinks/Week Comments No 0 (1 standard drink = 0.6 oz pur e alcohol) Comments Unknown Sex and Gender Information Value Date Recorded Sex Assigned at Not on file Legal Sex Female 9:02 AM EST Gender Identity Not on file Sexual Orientation Not on file Obstetrics History Last Filed Vital Signs Vital Sign Reading Time Taken Comments Blood Pressure 126/78 10/19/2023 8:58 AM EDT Pulse 73 10/19/2023 8:58 AM EDT Temperature - - Respiratory Rate - - Oxygen Saturation - - Inhaled Oxygen Concentration - - Weight 79.4 kg (175 lb) 10/19/2023 8:58 AM EDT Height 160 cm (5' 3 ) 10/19/2023 8:58 AM EDT Body Mass Index 31 10/19/2023 8:58 AM EDT Plan of Treatment Health Maintenance Due Date Last Done Comments DTaP,Tdap,and Td Vaccines (1 - Tdap) 12/21/2003 Hepatitis B Vaccines (1 of 3 - 19+ 3-dose series) 12/21/2003 Depression Screening 07/02/2022 HIV Screening 07/02/2022 Hepatitis C Screening 07/02/2022 Social Influencers of Health Screening 07/02/2022 COVID-19 Vaccine (1 - 2023-2 5 season) 2024 Cervical Cancer Screening: P ap Smear 09/15/2024 09/15/2021 Influenza Vaccine (Season Ended) 2025 HIB Vaccines Aged Out No longer eligi ble based on patient's age to complete this topic HPV Vaccines Aged Out No longer eligi ble based on patient's age to complete this topic Hepatitis A Vaccines Aged Out No long er eligible based on patient's age to complete this topic IPV Vaccines Aged Out No longer eligi ble based on patient's age to complete this topic MMR Vaccines Aged Out No longer eligi ble based on patient's age to complete this topic Meningococcal ACWY Vaccine Aged Out N o longer eligible based on patient's age to complete this topic Meningococcal B Vaccine Aged Out No l onger eligible based on patient's age to complete this topic Pneumococcal Vaccine: Pediat rics (0 to 5 Years) and At-Risk Patients (6 to 64 Years) Aged Out No longer eligi ble based on patient's age to complete this topic RSV Immunization Patients Un shane 20 months Aged Out No longer eligible b ased on patient's age to complete this topic Varicella Vaccines Aged Out No longer eligible based on patient's age to complete this topic Procedures Procedure Name Priority Date/Time Associated Diagnosis Comments PAP SMEAR Routine 09/15/2021 from Last 3 Months or Most Recently Relevant to Health Maintenance Results * Pap smear (09/15/2021) 09/15/2021 Narrative HISTORICAL TESTING LAB RESULTING AGENCY - 09/27/2021 1:10 PM EST [id number] THINPREP PAP, IMAGED: NEGATIVE FOR SQUAMOUS INTRAEITHELIAL LESION AND MALIGNANCY. TRICHOMONAS IS PRESENT. NOTE: THE PAP TEST IS A SCREENING TEST WITH AN INHERENT FALSE NEGATIVE RATE. AUTOMATED PRESCREENING OF ALL LIQUID BASED SPECIMENS IS PERFORMED BY THE THINPREP IMAGING SYSTEM UNLESS OTHERWISE STATED. RENETTA GREGORIO(ASCP) (CASE ELECTRONICALLY SIGNED 09 27 2021) RESULT OF APTIMA HIGH RISK HPV ASSAY: HIGH RISK HPV: ??NEGATIVE (SEROTYPES 16,18,31,33,35,39,45,51,52,56,58,59,66,68) COMPLETED ON 2021-09-19 ADEQUACY: SATISFACTORY ENDOCERVICAL/TRANSFORMATION ZONE COMPONENT ABSENT. SOURCE: THINPREP PAP HPV ANY DX: ??REFLEX 16 AND 18, CERVICAL, IMAGED CLINICAL INFORMATION: HPV ANY DIAGNOSIS. HORMONES, PAP HX NEGATIVE, Z12.4, Z01.419 Tiarra Zepeda [facility] LAB CYTOLOGY ORDERABLES Final Result HISTORICAL TESTING LAB RESULTING AGENCY from Last 3 Months or Most Recently Relevant to Health Maintenance Care Teams Hydrogenation Operator Relationship Specialty Start Date End Date Name, MD Francis [address] [place], [place] PCP - General 10/26/22
--- OUTSIDE RECORDS SUMMARY | 2024-12-11 09:37 | XMS_ITS | Clinical Summary ---
Author Organization [employer] Address [address] [place] [address] 7 [place] [address] Care Team Providers Care Cook Morning Name Role Phone Name, Francis SILVA Primary Care Provider [phone] Allergies No known active allergies Medications * This document contains information received from the source organization and may not represent a complete record from that organization. Fluocinolone Acetonide Scalp ([place]-Smoothe /FS Scalp) 0.01 % oilIndications :Seborrheic dermatitis Apply on damp scalp at evening time and cover with head covering and wash in the morning 118.28 mL 1 023 Active ibuprofen 800 MG tablet TAKE 1 TABLET (800 MG) BY MOUTH 4 TIMES DAILY. 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 Shake gently. Before first use, prime pump. After use, clean tip and replace cap. 16 g 2 025 2025 Active amLODIPine (Norvasc) 5 MG tabletIndicati ons:Hypertensi on, essential Take 1 tablet (5 mg) by mouth Once daily. 30 tablet 11 025 2025 Active ketoconazole (NIZOral) 2 % shampoo APPLY TOPICALLY 2 TIMES A WEEK. 120 mL 1 025 Active Zepbound 5 MG/0.5ML solution auto-injector INJECT ONE PEN (=5MG) SUBCUTANEOUSLY ONCE A WEEK DIRECTED 2 mL 3 025 Active ketoconazole (NIZOral) 2 % shampoo APPLY TOPICALLY 2 TIMES A WEEK 120 mL 1 024 2024 Discontinued Tirzepatide-We ight Management (Zepbound) 5 MG/0.5ML solution auto-injector Inject 0.5 mL (5 mg) under the skin 1 (one) time per week. 2 mL 3 025 2024 Discontinued Active Problems Problem Noted Date Diagnosed Date S/P MARITZA (total abdominal hysterectomy) Overview (09/27/2023): At [facility] for treatment of fibroid uterus 08/17/2023 Anxiety 01/31/2023 Assessment & Plan (02/05/2023 3:32 PM EDT): Assessment: Patient with nxiety (difficult to control worry, nervousness, and fear that something awful is going to happen). Symptoms are in the context of bio-psychosocial stressors of need for an upcoming surgery with out family or peer support. Patient will benefit from OP therapy and exploring additional coping mechanisms. At this time Dottie Reynoso meets criteria for Visit Diagnoses: Problem List Items Addressed This Visit Other Anxiety Patient ready to address current needs Yes Strengths- Dottie is in the contemplation stage of chanoge PLAN: 1. Follow up with [facility]: Not recommended for follow-up 2. Patient goal is to engage in Op therapy and increase coping mechanisms 3. Behavioral Recommendations a. Deep breathing b. Yoga c. OP therapy Hypertension, essential 11/30/2022 Seborrheic dermatitis 10/11/2020 Encounters Date Type Department Care Team Description 12/11/2024 Orders Only [facility] External Provider, [facility] 11/27/2024 Telephone [facility] [address] [place] [address] Katherine Garcia MA august recall 11/25/2024 Refill [facility] [address] [place] [address] Name, MD Francis 11/23/2024 Refill [facility] [address] [facility] [place] [address] Name, MD Francis 11/12/2024 Telephone [facility] [address] [facility] [place] [address] Farncis Chinchilla MD Prior Authorization 10/30/2024 Refill [facility] [address] [facility] [place] [address] Name, MD Francis Hypertension, essential 10/03/2024 Population Health Risk Score [facility] () Department [address] [place] [phone] Provider, Population Health Generic from Last 3 Months Immunizations Immunization Administration Dates Next Due HepB-CpG 06/08/2023,05/07/2023 06/04/2023 Influenza Injectable Quadriv alant Preservative Free IIV4 MDCK 05/07/2023 Influenza injectable quadriv alent IIV4 with preservative 05/22/2017 Influenza injectable quadrivalent preservative f ree 06/04/2019 Influenza, seasonal, injectable, preservative fr ee 04/28/2024 Moderna Covid-19 Vaccine 12+ 01/03/2021,11/27/19 21 Tdap 03/22/2017 Varicella 02/24/2019 Social History Tobacco Use Types Packs/Day Years Used Date Smoking Tobacco: Never Passive Smoke Exposure: Never Tobacco Cessation:Counseling Given: Not Answered Alcohol Use Standard Drinks/Week Comments Never 0 [...] Don't know 05/22/2022 10 :32 AM EDT Last Filed Vital Signs Vital Sign Reading Time Taken Comments Blood Pressure 162/99 08/14/2024 11:54 AM EST Pulse 67 08/14/2024 11:38 AM EST Temperature 35.1 ??C (95.1 ??F) 08/14/2024 1 1:38 AM EST Respiratory Rate 16 08/14/2024 11:3 8 AM EST Oxygen Saturation 98% 08/14/2024 11: 38 AM EST Inhaled Oxygen Concentration - - Weight 76.6 kg (168 lb 12.8 oz) 025 11:38 AM EST Height 160 cm (5' 3 ) 08/14/2024 11:38 AM EST Body Mass Index 29.9 08/14/2024 11:38 AM EST Plan of Treatment Health Maintenance Due Date Last Done Comments Family Planning (PISQ) 12/21/1999 COVID-19 Vaccine ( season) 2024 01/03/2021, 11/26/2020 SDOH Screening 02/14/2025 02/15/2024 Alcohol/Substance Use Screening 02/24/2025 02/25/2024 Depression Screening 02/24/2025 02/25/2024, 02/25/20 Disability Screening 08/07/2025 08/07/2024 Tobacco Screening 08/14/2025 08/14/2024 Lipid Panel 11/15/2025 11/15/2020, 11/15/2020 DTaP/Tdap/Td Vaccines (2 - Td or Tdap) 03/22/2027 03/22/2017 Zoster Vaccines (1 of 2) 2034 RSV Patients and Patients Aged 60 years or older (1 - 1-dose 75+ series) 12/21/2059 HIV Screening Completed 11/15/2020 Hepatitis C Screening Completed 11/15/2020 Hepatitis B Vaccines Completed 06/08/2023, 05/07/20 Influenza Vaccine Completed 04/28/2024, , 06/04/2019, Additional history exists HIB Vaccines Aged Out No longer eligi [...] patient's age to complete this topic Meningococcal Vaccine Aged Out No sandy fidencio eligible based on patient's age to complete this topic Pneumococcal Vaccine: Pediatrics (0 to 5 Years) and At-Risk Patients (6 to 49) Years) Aged Out No longer eligible based on patient's age to complete this topic RSV under 20 months Aged Out No longe r eligible based on patient's age to complete this topic Rotavirus Vaccines Aged Out No longer eligible based on patient's age to complete this topic Goals Goal Patient Goal Type Associated Problems Recent Progress Patient-Stated? Author Blood Pressure < 140/90 Blood Pressure 162/99( 025 11:54 AM EST) No Puia, Ana M, PharmD Record your blood pressure two to three times weekly Blood Pressure No Puia, Ana M, PharmD Procedures Procedure Name Priority Date/Time Associated Diagnosis Comments XR LUMBAR SPINE 2-3 VIEWS Routine 12/11/2024 8:45 AM EDT ZZZ HISTORICAL HEPATITIS C AB W/REFL TO HCV RNA, QN, PCR Routine 11/15/2020 10:11 AM EDT HIV 1/2 ANTIGEN/ANTIBODY, FOURTH GENERATION W/RFL Routine 11/15/2020 10:11 AM EDT LIPID PANEL, STANDARD Routine 11/15/2020 10:11 AM EDT from Last 3 Months or Most Recently Relevant to Health Maintenance Results * XR Lumbar Spine 2-3 Views (12/11/2024 8:45 AM EDT) Anatomical Region Laterality Modality Spine, L-spine Radiographic Lilli ging 12/11/2024 8:45 AM EDT Narrative 12/11/2024 9:12 AM EDT ? [facility] ?[address] ?[place] [address] ?XRay Report ? Signed ? Patient: Dottie Bonilla ?MR ?? #: [id number] ? : 1985 ?Acct:[id number] ? Age/Sex: 38 / F ?ADM Date: 12/11/24 ? Loc: HO.ED ? Attending Dr: ? Ordering Physician: Jessica Wesley DO ?? Date of Service: 12/11/24 ?? Procedure(s): XR lumbar spine 2-3V ?? Accession Number(s): [id number] ? cc: Jessica Wesley DO; Name,Francis SILVA [...] DD/ 0845 ? TD/TT: 12/11/24 0901 ? Supervisor Particleboard: ? Procedure Note Donotbenjamininterpreter, Image - 12/11/[address] [address] XRay Report Signed Patient: Dottie Bonilla LMR #: [id number] : 1985Acct:[id number] Age/Sex: 38 / FADM Date: 12/11/24 Loc: HO.ED Attending Dr: Ordering Physician: Jessica Wesley DO Date of Service: 12/11/24 Procedure(s): XR lumbar spine 2-3V Accession Number(s): [id number] cc: Jessica Wesley DO; Name,Francis SILVA EXAMINATION: [...] Jaswinder Huang MD 12/11/2024 09:09 AM EDT Dictated By: Jaswinder Huang MD Signed By: <Electronically signed by Jaswinder Huang MD in OV> 12/11/2409 DD/ TD/TT: 12/11/[address] Supervisor Particleboard: [facility] External Provider IMG XR PROCEDURES Edited Result - Final * HEPATITIS C AB W/REFL TO HCV RNA, QN, PCR (11/15/2020 10:11 AM EDT) HEPATITIS C ANTIBODY NON-REACT OMERO NON-REACT OMERO [facility] INDEX 0.02 <1.00 [facility] Comment: ?? HCV antibody was non-reactive. There is no laboratory ?? evidence of HCV infection. ?? In most cases, no further action is required. However, if recent HCV exposure is suspected, a test for HCV RNA (test code 75674) is suggested. ?? For additional information please refer to http://GOkey.Hypejar/faq/PFI13i9 (This link is being provided for informational/ educational purposes only.) ?? 11/15/2020 10:1 1 AM EDT us Francis Name HISTORICAL/NON ORDERABLE LABS Fi nal Result [facility] [address] * HIV 1/2 ANTIGEN/ANTIBODY,FOURTH GENERATION W/RFL (11/15/2020 10:11 AM EDT) HIV-1/2 ANTIGEN AND ANTIBODIES, 4TH GENERATION W/ REFLEX NON-REACT OMERO NON-REACT OMERO [facility] Comment: HIV-1 antigen and HIV-1/HIV-2 antibodies were not detected. There is no laboratory evidence of HIV infection. ?? PLEASE NOTE: This information has been disclosed to you from records whose confidentiality may be protected by state law. ??If your state requires such protection, then the state law prohibits you from making any further disclosure of the information without the specific written consent of the person to whom it pertains, or as otherwise permitted by law. A general authorization for the release of medical or other information is NOT sufficient for this purpose. ? For additional information please refer to http://GOkey.Hypejar/faq/QMX006 (This link is being provided for informational/ educational purposes only.) ? The performance of this assay has not been clinically validated in patients less than 2 years old. ?? 11/15/2020 10:1 1 AM EDT Francis Chinchilla MD LAB BLOOD ORDERABLES Final Resul t Performing Organization Address [facility] de Phone Number [facility] [address] * (ABNORMAL) LIPID PANEL, STANDARD (11/15/2020 10:11 AM EDT) Chol/HDLC Ratio 3.9 <5.0 (calc) [facility] Cholesterol, Total 185 <200 mg/dL [facility] HDL Cholesterol 48(L) > OR = 50 mg/dL [facility] LDL Cholesterol 111(H) mg/dL (calc) [facility] Comment: Reference range: <100 ?? Desirable range <100 mg/dL for primary prevention; ?? <70 mg/dL for patients with CHD or diabetic patients ?? with > or = 2 CHD risk factors. ?? LDL-C is now calculated using the Joe ?? calculation, which is a validated novel method providing ?? better accuracy than the Friedewald equation in the ?? estimation of LDL-C. ?? Colin GONCALVES et al. ANTONI. 2013;310(19): 6127-1702 ?? (http://GOkey.NORCAT/faq/IML063) Non-HDL Cholesterol 137(H) <130 mg/dL (calc) [facility] Comment: For patients with diabetes plus 1 major ASCVD risk ?? factor, treating to a non-HDL-C goal of <100 mg/dL ?? (LDL-C of <70 mg/dL) is considered a therapeutic ?? option. Triglycerides 143 <150 mg/dL [facility] 11/15/2020 10:1 1 AM EDT Francis Chinchilla MD LAB BLOOD ORDERABLES Final Resul t Performing Organization Address [facility] Phone Number [facility] [address] from Last 3 Months or Most Recently Relevant to Health Maintenance Insurance C3 Care Teams Cook Morning Relationship Specialty Start Date End Date Name, MD Francis [address] [place] [id number] PCP - General Family Medicine 03/15/17
== END 2024-12-11 09:35 | disposition home or self-care (01) ==
PROVIDERS: Emergency Provider Emergency Medicine; PCP Internal Medicine Geriatric Medicine
DX: S39.012A Strain of muscle, fascia and tendon of lower back, initial encounter (principal); X50.9XXA Other and unspecified overexertion or strenuous movements or postures, initial encounter; Y93.9 Activity, unspecified; Y92.89 Other specified places as the place of occurrence of the external cause; Y99.0 Civilian activity done for income or pay
CPT/HCPCS: 72100; 96372; 99284; J1885

== ENCOUNTER → 2024-12-11 08:45 | Outpatient (BNV) | payer MEDICAID, SELFPAY | PROVIDERS: Emergency Provider Emergency Medicine; PCP Internal Medicine Geriatric Medicine; Visit Provider Radiology Diagnostic Radiology | DX: M54.50 Low back pain, unspecified (principal) | CPT/HCPCS: 72100 ==

== ENCOUNTER 2025-04-11 10:29 | Outpatient (REF) | payer MEDICAID, SELFPAY ==
--- OUTSIDE RECORDS SUMMARY | 2025-04-06 14:40 | XMS_ITS | Encounter Summary ---
Author Organization [employer] Address [address] [place] [address] Care Team Providers Care Saw Offbearer Name Role Phone Name, Francis SILVA Primary Care Provider [phone] Reason for Visit * Reason Comments Generalized Body Aches Facial Pain sinus Fever Encounter Details Date Type Department Care Team ([facility] Contact Info) Description 04/06/2025 2:40 PM EDT Office Visit [facility] [address] [place], [place] [phone] Nara Holland, ANP [address] [place] [address] Nasal congestion (Primary Dx); Hypertension, essential; Facial pressure Social History Tobacco Use Types Packs/Day Years Used Date Smoking Tobacco: Never Passive Smoke Exposure: Never Smokeless Tobacco: Never Alcohol Use Standard [...] AM EDT documented as of this encounter Last Filed Vital Signs Vital Sign Reading Time Taken Comments Blood Pressure 140/90 04/06/2025 3:41 PM EDT Pulse 72 04/06/2025 3:20 PM EDT Temperature 36.8 C (98.2 F) 04/06/2025 3:20 PM EDT Respiratory Rate 18 04/06/2025 3:20 PM EDT Oxygen Saturation 98% 04/06/2025 3:20 PM EDT Inhaled Oxygen Concentration - - Weight 79.3 kg (174 lb 12.8 oz) 04/06/2025 3:20 PM EDT Height - - Body Mass Index 30.96 02/06/2025 1:35 PM EDT documented in this encounter Progress Notes * KATHERINE Zavala - 04/06/2025 2:40 PM EDT Dottie Reynoso is 39 y.o. patient here today for sick visit. HPI Here today w/ congestion, facial pressure, sore throat initially but this resolved. No fever. Yes chills. Sx started 3d ago. 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 No SOB, MAKI, wheezing. No difficulty or painful swallowing. Non-smoker Took amlodipine this AM. Reports home BP at goal. Ravi LOW provided Croatian interpretation. Review of Systems Constitutional: Positive for chills. Negative for fever. HENT: Positive for congestion. Negative for ear pain, sneezing, sore throat and trouble swallowing. Respiratory: Negative for cough and shortness of breath. Cardiovascular: Negative for chest pain. Gastrointestinal: Negative for constipation and diarrhea. Endocrine: Negative for polydipsia, polyphagia and polyuria. Genitourinary: Negative for dysuria. Musculoskeletal: Negative for arthralgias and myalgias. Problem List[1] Objective BP (!) 140/90 (BP Location: Right arm, Patient Position: Sitting, BP Cuff Size: Large adult) Pulse 72 Temp 98.2 ??F (36.8 ??C) (Oral) Resp 18 Wt 174 lb 12.8 oz (79.3 kg) SpO2 98% BMI 30.96 kg/m?? Physical Exam Vitals reviewed. Constitutional: General: She is not in acute distress. Appearance: Normal appearance. She is not ill-appearing. HENT: Head: Normocephalic and atraumatic. Right Ear: Tympanic membrane, ear canal and external ear normal. Left Ear: Tympanic membrane, ear canal and external ear normal. Nose: Congestion present. Mouth/Throat: Pharynx: No oropharyngeal exudate or posterior oropharyngeal erythema. Eyes: General: No scleral icterus. Extraocular Movements: Extraocular movements intact. Pupils: Pupils are equal, round, and reactive to light. Cardiovascular: Rate and Rhythm: Normal rate and regular rhythm. Pulmonary: Effort: Pulmonary effort is normal. No accessory muscle usage or respiratory distress. Breath sounds: Normal breath sounds. Neurological: Mental Status: She is alert and oriented to person, place, and time. Psychiatric: Mood and Affect: Mood normal. Behavior: Behavior normal. Diagnoses and all orders for this visit: Nasal congestion Recommend hydration, humidification, OTC nasal saline, flonase as needed for congestion acetaminophen for sore throat/fever PRN, cough drops, honey/tea, etc. Call for worsening sx, SOB/MAKI, fever not responding to OTC meds, need for triage. Gave work note for 2d - fluticasone (Flonase) 50 MCG/ACT nasal spray; Administer 2 sprays into each nostril Once per day for 14 days. Shake gently. Before first use, prime pump. After use, clean tip and replace cap. Hypertension, essential BP mildly improved on repeat. Reports home BP is good. Cont amlodipine 10mg Facial pressure Rapid testing negative for COVID/flu - POCT Rapid COVID Ag - Influenza A (ID NOW Rapid Molecular) - Influenza B (ID NOW Rapid Molecular) [1] Patient Active Problem List Diagnosis Seborrheic dermatitis Anxiety Hypertension, essential S/P MARITZA (total abdominal hysterectomy) Strain of lumbar region Right elbow tendonitis Greater trochanteric bursitis of right hip Class 1 obesity due to excess calories with body mass index (BMI) of 31.0 to 31.9 in adult Dietary counseling documented in this encounter Plan of Treatment Not on file documented as of this encounter Goals Goal Patient Goal Type Associated Problems Recent Progress Patient-Stated? Author Blood Pressure < 140/90 Blood Pressure 140/92( 025 11:12 AM EDT) No PuiaBoraAna M, PharmD Record your blood pressure two to three times weekly Blood Pressure No Bora Gryssa, PharmD documented as of this encounter Procedures Procedure Name Priority Date/Time Associated Diagnosis Comments POCT INFLUENZA B (ID NOW RAPID MOLECULAR) Routine 04/06/2025 3:54 PM EDT Facial pressure POCT INFLUENZA A (ID NOW RAPID MOLECULAR) Routine 04/06/2025 3:54 PM EDT Facial pressure POCT RAPID COVID ANTIGEN Routine 04/06/2025 3:54 PM EDT Facial pressure documented in this encounter Results * Influenza B (ID NOW Rapid Molecular) (04/06/2025 3:54 PM EDT) Influenza B Negative Negative, Indeterminate [facility] Swab 04/06/2025 3:54 PM EDT Nara MURPHY POINT OF CARE TEST ENTER/EDIT OR DERABLES Final Result [facility] [address] [place] [phone] * Influenza A (ID NOW Rapid Molecular) (04/06/2025 3:54 PM EDT) Influenza A Negative Negative, Indeterminate [facility] Swab 04/06/2025 3:54 PM EDT Nara Holland ANP POINT OF CARE TEST ENTER/EDIT OR DERABLES Final Result Performing Organization Address [facility] Phone Number [facility] [address] [place] [phone] [phone] * POCT Rapid COVID Ag (04/06/2025 3:54 PM EDT) Rapid COVID Ag Negative [facility] Swab 04/06/2025 3:54 PM EDT Nara Holland ANP POINT OF CARE TEST ENTER/EDIT OR DERABLES Final Result Performing Organization Address [facility] de Phone Number [facility] [address] [place] [phone] documented in this encounter Visit Diagnoses Diagnosis Nasal congestion- Primary Other diseases of nasal cavity and sinuses Hypertension, essential Unspecified essential hypertension Facial pressure documented in this encounter Additional Health Concerns Assessment Noted Time PHQ-9 Depression Total Score: 0 02/25/20 24 3:01 PM EDT documented as of this encounter Care Teams Saw Offbearer Relationship Specialty Start Date End Date Name, MD Francis [address] [place] [phone] PCP - General Family Medicine 03/15/17 documented as of this encounter
--- OUTSIDE RECORDS SUMMARY | 2025-04-10 10:45 | XMS_ITS | Encounter Summary ---
Author Organization [employer] Address [address] [place] [address] Care Team Providers Care Trim Operator Name Role Phone Name, Francis SILVA Primary Care Provider [phone] Reason for Referral * Consultation (Routine) - Pending Review Specialty Diagnoses / Procedures Referred By Eliu wilson Referred To Contact Orthopaedic Surgery Diagnoses Trochanteric bursitis of right hip Cookie Madrigal NP [address] [place] [address] Phone: tel: fax: Referral ID Status Reason Start Date Expiration Date Visits Requested Visits Authorized [id number] Pending Review Specialty Services Required 04/10/2025 04/10/2026 1 1 Reason for Visit * Reason Comments Annual Exam Encounter Details Date Type Department Care Team (Late st Contact Info) Description 04/10/2025 10:45 AM EDT Office Visit [facility] [address], [place] [id number] Cookie Madrigal NP [address] [place] [address] Hypertension, essential (Primary Dx); Healthcare maintenance; Breast screening; Trochanteric bursitis of right hip; Hordeolum externum of right upper eyelid; Pityriasis lichenoides chronica Social History Tobacco Use Types Packs/Day Years Used Date Smoking Tobacco: Never Passive Smoke Exposure: Never Smokeless Tobacco: Never Tobacco Cessation:Counseling Given: Not Answered Alcohol Use Standard Drinks/Week Comments Never 0 (1 standard drink = 0.6 oz pur e alcohol) Depression Answer Date Recorded Patient Health Questionnaire-9 Score 0 04/10/2025 Patient Health Questionnaire-9 Score 0 04/10/2025 Last PHQ-9: Questionnaire Data Not on file 0 04/10/2025 Housing Stability Answer Date Recorded What is your housing situation today? I have devorah curran 04/10/[address] you li ve. Do you have problems with any of the following? None of the above 04/10/2025 Food Insecurity Answer Date Recorded Within the past 12 months, y ou worried that your food would run out before you got money to buy more: Never True 04/10/2025 Within the past 12 months,th e food you bought just didn't last and you didn't have enough money to get more: Never True Transportation Answer Date Recorded In the past 12 months, has l ack of transportation kept you from medical appts, meetings, work or from getting things needed for daily living? No 04/10/2025 Utilities Answer Date Recorded In the past 12 months, has t he electric, gas, oil or water company threatened to shut off services in your home? No 04/10/2025 Depression Answer Date Recorded Patient Health Questionnaire-2 Score 0 04/10/2025 Internet Access Answer Date Recorded Internet Access Q1 No 04/10/2025 Internet Access Q2 I do not want or need it 03/23 Comments No Sex and Gender Information Value Date Recorded Sex Assigned at Female 05/22/2022 10:32 AM EDT Legal Sex Female 10:32 AM EDT Gender Identity Female 05/22/2022 10:32 AM EDT Sexual Orientation Don't know 05/22/2022 10 :32 AM EDT documented as of this encounter Last Filed Vital Signs Vital Sign Reading Time Taken Comments Blood Pressure 140/92 04/10/2025 11:12 AM EDT Pulse 86 04/10/2025 11:12 AM EDT Temperature 36.4 C (97.5 F) 04/10/2025 11:12 AM EDT Respiratory Rate 15 04/10/2025 11:12 AM EDT Oxygen Saturation 98% 04/10/2025 11:12 AM EDT Inhaled Oxygen Concentration - - Weight 78.3 kg (172 lb 9.6 oz) 04/10/2025 11:12 AM EDT Height 160 cm (5' 3 ) 04/10/2025 11:12 AM EDT Body Mass Index 30.57 04/10/2025 11:12 AM EDT documented in this encounter Functional Status * Over the past 2 weeks, how often have you been bothered by any of the following problems? Question Answer Date of Assessment Author Patient Health Questionnaire -2 Score 0 04/10/2025 11:13 AM EDT Rudy Liu MA * Little interest or pleasure in doing things Answer Date of Assessment Author Not at all 04/10/2025 11:13 AM EDT Rudy Liu MA * Feeling down, depressed, or hopeless Answer Date of Assessment Author Not at all 04/10/2025 11:13 AM CASSANDRAT Rudy Liu MA * Trouble falling or staying asleep, or sleeping too much Answer Date of Assessment Author Not at all 04/10/2025 11:13 AM Rudy Mendes MA * Feeling tired or having little energy Answer Date of Assessment Author Not at all 04/10/2025 11:13 AM EDT Rudy Liu MA * Poor appetite or overeating Answer Date of Assessment Author Not at all 04/10/2025 11:13 AM Rudy Mendes MA * Feeling bad about yourself - or that you are a failure or have let yourself or your family down Answer Date of Assessment Author Not at all 04/10/2025 11:13 AM Rudy Mendes MA * Trouble concentrating on things, such as reading the newspaper or watching television Answer Date of Assessment Author Not at all 04/10/2025 11:13 AM EDT Rudy Liu MA * Moving or speaking so slowly that other people could have noticed? Or the opposite - being so fidgety or restless that you have been moving around a lot more than usual. Answer Date of Assessment Author Not at all 04/10/2025 11:13 AM Rudy Mendes MA * Thoughts that you would be better off or hurting yourself in some way Answer Date of Assessment Author Not at all 04/10/2025 11:13 AM Rudy Mnedes MA * Patient Health Questionnaire-9 Score Answer Date of Assessment Author 0 04/10/2025 11:13 AM Rudy Mendes MA documented as of this encounter Progress Notes * Cookie Madrigal NP - 04/10/2025 10:45 AM EDT Subjective: Dottie Reynoso is a 39 y.o. female who presents to the office for a physical exam. Interim history: Home bps are at goal Chronic hip pain, has had injection, complete physical therapy, and pain persists Had severe side effects from zepbound, constant acid reflux which got worse over time, cannot tolerate. Could tolerate wegovy. And would like to resume but not covered by insurance Dottie Reynoso, age 39, female - Stopped Wegovy due to insurance issues - Used Zeffound, developed severe acid reflux and insomnia, discontinued - Right hip pain ongoing for one year, no improvement with physical therapy, no prior injection - Occasional difficulty hearing, no internal ear pain - Right eye redness and swelling, mild pus noted - Scalp eczema, uses prescribed cream as needed - Denies headaches, chest pain, nausea, constipation - No recent hospitalizations - No mental health concerns reported Problem List[1] Surgical History[2] Family History[3] Social History Living situation: daughter and abulea 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 (Menstrual status: Menstrual status unknown). Allergies[4] Review of Systems Constitutional: Negative for chills, fatigue and fever. HENT: Negative for congestion and sore throat. Eyes: Negative for visual disturbance. Respiratory: Negative for cough, shortness of breath and wheezing. Cardiovascular: Negative for chest pain and palpitations. Gastrointestinal: Negative for constipation, diarrhea, nausea and vomiting. Musculoskeletal: Positive for arthralgias. Skin: Negative for rash. Psychiatric/Behavioral: Negative for suicidal ideas. Vitals: 04/10/25 1112 BP: (!) 140/92 BP Location: Left arm Patient Position: Sitting BP Cuff Size: Adult Pulse: 86 Resp: 15 Temp: 97.5 ??F (36.4 ??C) TempSrc: Oral SpO2: 98% Weight: 172 lb 9.6 oz (78.3 kg) Height: 5' 3 (1.6 m) Physical Exam Vitals reviewed. Constitutional: Appearance: She is obese. HENT: Head: Normocephalic and atraumatic. Nose: Nose normal. Eyes: General: Right eye: Hordeolum present. Conjunctiva/sclera: Conjunctivae normal. Cardiovascular: Rate and Rhythm: Normal rate and regular rhythm. Pulmonary: Effort: Pulmonary effort is normal. Breath sounds: Normal breath sounds. Musculoskeletal: Cervical back: Normal range of motion and neck supple. Neurological: General: No focal deficit present. Mental Status: She is alert. Psychiatric: Mood and Affect: Mood normal. - HEENT: Right eye shows mild erythema and edema. Ears are normal. Thyroid examination performed with swallowing. - CARDIOVASCULAR: Heart rate is regular. - MUSCULOSKELETAL: Upper extremity muscle strength assessed; resistance to movement tested. Right hip examination noted. - NEUROLOGIC: Reflexes checked. Assessment & Plan Hypertension, essential Orders: Lipid Panel, Standard; Future Comprehensive Metabolic Panel; Future Hemoglobin A1c; Future Healthcare maintenance Orders: Chlamydia/N. Gonorrhoeae, PCR, Urine HIV-1/2 Antigen and Antibodies, Fourth Generation, with Reflexes; Future Hepatitis C Antibody with Reflex to HCV, RNA, Quantitative, Real-Time PCR; Future RPR (Monitor) with Reflex to Titer; Future Measles, Mumps, and Rubella (MMR) Antibodies (IgG) Panel, Immune Status; Future Breast screening Trochanteric bursitis of right hip Orders: Referral to Orthopaedic Surgery; Future Hordeolum externum of right upper eyelid Orders: erythromycin (Romycin) 5 MG/GM ophthalmic ointment; Apply to affected eye(s) 4 times daily for 10 days. Apply Amount per Dose: 0.5 inch (~1 cm) per dose. Pityriasis lichenoides chronica Orders: betamethasone, augmented, (Diprolene) 0.05 % ointment; APPLY TOPICALLY TWICE A DAY Assessment & Plan Hypertension, essential: - Hypertension present, blood pressure slightly elevated during visit. - Ordered blood work to assess cholesterol, renal function, and average blood glucose. Continue home blood pressure monitoring. Healthcare maintenance: - Ordered blood work for measles, mumps, and rubella as required for form completion. Encouraged healthy diet and regular physical activity. Discussed alcohol, tobacco, and drug use. Offered screening for sexually transmitted infections; urine sample for gonorrhea and chlamydia requested. Breast screening: - Recommendation to initiate breast cancer screening due to age. - Ordered screening mammogram. Advised to report any breast lumps, bumps, or symptoms regardless ofmammogram results. Trochanteric bursitis of right hip: - Trochanteric bursitis of right hip with persistent symptoms despite physical therapy and no improvement. - Referred to orthopedics for further evaluation and management. Discussed possibility of additional injection. Hordeolum externum of right upper eyelid: - Hordeolum externum of right upper eyelid with mild erythema and swelling. - Recommended warm compresses as primary treatment. Prescribed topical medication in case of purulent discharge. Hearing difficulty: - Hearing difficulty possibly related to loud noise exposure, electronics use, or nasal congestion/allergies. - Advised on potential contributing factors. Offered referral to ophthalmology for vision assessment. Eczema: - Eczema with pruritus affecting ear region. - Recommended topical cream application with Q-tip to affected area as needed. Offered refill; advised to obtain from pharmacy if not available in clinic. Prescription - Wegovy (semaglutide) injection, weekly; prior authorization pending due to insurance change; switched back due to severe acid reflux and sleep disturbance - Topical antibiotic ophthalmic ointment for right eye stye; apply a dab with Q- tip to eyelid when purulent discharge, adjunct to warm compresses Appointments - Mammogram for breast cancer screening - Orthopedics consultation for right hip evaluation - Ophthalmology referral for vision evaluation - Dental referral - Blood draw for measles, mumps, rubella serology Routine Screening and Health Maintenance Optometry: No Dentist: Yes Office Visit on 04/06/2025 Component Date Value Ref Range Status Rapid COVID Ag 04/06/2025 Negative Final Influenza A 04/06/2025 Negative Negative, Indeterminate Final Influenza B 04/06/2025 Negative Negative, Indeterminate Final Routine Cancer Screening Breast CA: Cervical CA: Colon CA: Lung CA: Current Medications[5] Immunization History Administered Date(s) Administered HepB-CpG 05/07/2023, 06/08/2023 Influenza Injectable Quadrivalant Preservative Free IIV4 MDCK 05/07/2023 Influenza injectable quadrivalent IIV4 with preservative 05/22/2017 Influenza injectable quadrivalent preservative free 06/04/2019 Influenza, seasonal, injectable, preservative free 04/28/2024 Moderna Covid-19 Vaccine 12+ 11/26/2020, 01/03/2021 Tdap 03/22/2017 Varicella 02/24/2019 Visit Conducted in: Vietnamese Translation by: Provided by [employer] Phone Service ID # [id number] This note was drafted using Ambient (AI) technology. The patient/patient's guardian has been informed and has consented to the use of this technology: Yes Based on our discussion, I have outlined the following instructions for you: - Keep checking your blood pressure at home regularly. - Eat healthy foods and try to be physically active as often as you can. - Be mindful of your use of alcohol, tobacco, and drugs. - Give a urine sample for testing for sexually transmitted infections, including gonorrhea and chlamydia, if you agree to the screening. - If you notice any lumps, bumps, or changes in your breasts, let your healthcare provider know, even if your mammogram results are normal. - If you have ongoing pain in your right hip, you may discuss the possibility of getting an injection for relief. - For the swelling and redness on your right upper eyelid, place a warm, damp cloth over the area several times a day. - If you notice pus coming from your eyelid, use the prescribed ointment or cream as directed. - Think about things that might be affecting your hearing, such as loud noises, electronics, or nasal congestion/allergies. - For itchy skin around your ear, gently apply the prescribed cream with a Q-tip as needed. - If you need more of your eczema cream, you can get a refill at the pharmacy if it???s not available at the clinic. Next appointment(s): - Mammogram for breast cancer screening - Orthopedics consultation for right hip evaluation - Ophthalmology referral for vision evaluation - Dental referral - Blood draw for measles, mumps, rubella serology Thank you again for your visit, and we look forward to supporting you in your journey to better health. [1] Patient Active Problem List Diagnosis Seborrheic dermatitis Anxiety Hypertension, essential S/P MARITZA (total abdominal hysterectomy) Strain of lumbar region Right elbow tendonitis Greater trochanteric bursitis of right hip Class 1 obesity due to excess calories with body mass index (BMI) of 31.0 to 31.9 in adult Dietary counseling Healthcare maintenance Breast screening Trochanteric bursitis of right hip Hordeolum externum of right upper eyelid [2] Past Surgical History: Procedure Laterality Date TUBAL LIGATION [3] No family history on file. [4] No Known Allergies [5] Current Outpatient Medications Medication Sig Dispense Refill amLODIPine (Norvasc) 10 MG tablet Take 1 tablet (10 mg) by mouth Once per day. 30 tablet 11 betamethasone, augmented, (Diprolene) 0.05 % ointment APPLY TOPICALLY TWICE A DAY 45 g 1 erythromycin (Romycin) 5 MG/GM ophthalmic ointment Apply to affected eye(s) 4 times daily for 10 days. Apply Amount per Dose: 0.5 inch (~1 cm) per dose. 3.5 g 0 Fluocinolone Acetonide Scalp (Tyaskin-Smoothe/FS Scalp) 0.01 % oil Apply on damp scalp at evening time and cover with head covering and wash in the morning 118.28 mL 1 fluticasone (Flonase) 50 MCG/ACT nasal spray Administer 2 sprays into each nostril Once per day for14 days. Shake gently. Before first use, prime pump. After use, clean tip and replace cap. 16 g 0 ibuprofen 800 MG tablet TAKE 1 TABLET (800 MG) BY MOUTH 4 TIMES DAILY. 120 tablet 0 ketoconazole (NIZOral) 2 % shampoo APPLY TOPICALLY 2 TIMES A WEEK. 120 mL 1 Semaglutide-Weight Management (Wegovy) 0.25 MG/0.5ML solution auto-injector Inject 0.5 mL (0.25 mg)under the skin 1 (one) time per week for 28 days. 2 mL 0 No current facility-administered medications for this visit. documented in this encounter Miscellaneous Notes * Assessment & Plan Note - Cookie Madrigal NP - 04/10/2025 10:45 AM EDTAssociated Problem(s): Hypertension, essential Orders: Lipid Panel, Standard; Future Comprehensive Metabolic Panel; Future Hemoglobin A1c; Future * Assessment & Plan Note - Cookie Madrigal NP - 04/10/2025 10:45 AM EDTAssociated Problem(s): Healthcare maintenance Orders: Chlamydia/N. Gonorrhoeae, PCR, Urine HIV-1/2 Antigen and Antibodies, Fourth Generation, with Reflexes; Future Hepatitis C Antibody with Reflex to HCV, RNA, Quantitative, Real-Time PCR; Future RPR (Monitor) with Reflex to Titer; Future Measles, Mumps, and Rubella (MMR) Antibodies (IgG) Panel, Immune Status; Future * Assessment & Plan Note - Cookie Madrigal NP - 04/10/2025 10:45 AM EDTAssociated Problem(s): Breast screening * Assessment & Plan Note - Cookie Madrigal NP - 04/10/2025 10:45 AM EDTAssociated Problem(s): Trochanteric bursitis of right hip Orders: Referral to Orthopaedic Surgery; Future * Assessment & Plan Note - Cookie Madrigal NP - 04/10/2025 10:45 AM EDTAssociated Problem(s): Hordeolum externum of right upper eyelid Orders: erythromycin (Romycin) 5 MG/GM ophthalmic ointment; Apply to affected eye(s) 4 times daily for 10 days. Apply Amount per Dose: 0.5 inch (~1 cm) per dose. documented in this encounter Plan of Treatment Scheduled Orders Name Type Priority Associated Diagnoses Orde r Schedule Chlamydia/N. Gonorrhoeae, PCR, Urine Lab Routine Healthcare maintenance Ordered: 04/10/2025 HIV-1/2 Antigen and Antibodies, Fourth Generation, with Reflexes Lab Routine Healthcare maintenance Expected: 04/10/2025 (Approximate), Expires: 04/10/2026 Hepatitis C Antibody with Reflex to HCV, RNA, Quantitative, Real-Time PCR Lab Routine Healthcare maintenance Expected: 04/10/2025, Expires: 04/10/2026 RPR (Monitor) with Reflex to Titer Lab Routine Healthcare maintenance Expected: 04/10/2025, Expires: 04/10/2026 Lipid Panel, Standard Lab Routine Hypertension, essential Expected: 04/10/2025 (Approximate), Expires: 04/10/2026 Comprehensive Metabolic Panel Lab Routine Hypertension, essential Expected: 04/10/2025 (Approximate), Expires: 04/10/2026 Hemoglobin A1c Lab Routine Hypertension, essential Expected: 04/10/2025 (Approximate), Expires: 04/10/2026 Measles, Mumps, and Rubella (MMR) Antibodies (IgG) Panel, Immune Status Lab Routine Healthcare maintenance Expected: 04/10/2025 (Approximate), Expires: 04/10/2026 Scheduled Referrals Name Type Priority Associated Diagnoses Order Schedule Referral to Orthopaedic Surgery Outpatient Referral Routine Trochanteric bursitis of right hip Expected: 04/10/2025 (Approximate), Expires: 04/10/2026 documented as of this encounter Goals Goal Patient Goal Type Associated Problems Recent Progress Patient-Stated? Author Blood Pressure < 140/90 Blood Pressure 140/92( 025 11:12 AM EDT) No Ana M Gr, PharmD Record your blood pressure two to three times weekly Blood Pressure No Ana M Gr, PharmD documented as of this encounter Visit Diagnoses Diagnosis Hypertension, essential- Primary Unspecified essential hypertension Healthcare maintenance Breast screening Breast screening, unspecified Trochanteric bursitis of right hip Hordeolum externum of right upper eyelid Pityriasis lichenoides chronica Parapsoriasis documented in this encounter Additional Health Concerns Assessment Noted Time PHQ-9 Depression Total Score: 0 04/10/20 25 11:13 AM EDT documented as of this encounter Care Teams Trim Operator Relationship Specialty Start Date End Date Name, MD Francis [address] [place] [address] PCP - General Family Medicine 03/15/17 documented as of this encounter
--- OUTSIDE RECORDS SUMMARY | 2025-04-11 10:34 | XMS_ITS | Encounter Summary ---
Author Organization [employer] Address [address] [place] [address] Care Team Providers Care Publications Writer Name Role Phone Name, Francis SILVA Primary Care Provider [phone] Reason for Visit * Reason Onset Date Comments Med Refill 06/29/2024 Encounter Details Date Type Department Care Team ([facility] st Contact Info) Description 06/29/2024 Refill [facility] [address] [place], [place] [id number] Name, MD Francis [address] [place] [address] Social History Tobacco Use Types Packs/Day Years [...] Pressure 140/92( 025 11:12 AM EDT) No Puia, Ana M, PharmD Record your blood pressure two to three times weekly Blood Pressure No Puia, Ana M, PharmD documented as of this encounter Visit Diagnoses Not on filedocumented in this encounter Additional Health Concerns Assessment Noted Time PHQ-9 Depression Total Score: 0 02/25/20 24 3:01 PM EDT documented as of this encounter Care Teams Publications Writer Relationship Specialty Start Date End Date Name, MD Francis [address] [place] [address] PCP - General Family Medicine 03/15/17 documented as of this encounter
--- OUTSIDE RECORDS SUMMARY | 2025-04-11 10:34 | XMS_ITS | Encounter Summary ---
Author Organization [employer] Address [address] [place] [address] Care Team Providers Care Coil Connector Repairer Name Role Phone Name, Francis SILVA Primary Care Provider [phone] Encounter Details Date Type Department Care Team (Latest Contact Info) Description 04/10/2025 Travel Social History Tobacco Use Types Packs/Day Years [...] AM EDT documented as of this encounter Functional Status * Over the [...] 11:13 AM CASSANDRAT Rudy Liu MA * Feeling down, depressed, [...] 04/10/2025 11:13 AM Rudy Mendes MA * Poor appetite or overeating Answer [...] 04/10/2025 11:13 AM Rudy Mendes MA * Moving or speaking so slowly that other people could have noticed? Or the opposite - being so fidgety or restless that you have been moving around a lot more than usual. Answer Date of Assessment Author Not at all 04/10/2025 11:13 AM EDT Rudy iLu MA * Thoughts that you would be better off or hurting yourself in some way Answer Date of Assessment Author Not at all 04/10/2025 11:13 AM EDT Rudy Liu MA * Patient Health Questionnaire-9 Score Answer Date of Assessment Author 0 04/10/2025 11:13 AM EDT Rudy Liu MA documented as of this encounter Plan of Treatment Not on file documented as of this encounter Goals Goal Patient Goal Type Associated Problems Recent Progress Patient-Stated? Author Blood Pressure < 140/90 Blood Pressure 140/92( 025 11:12 AM EDT) No Puia, Ana M, PharmD Record your blood pressure two to three times weekly Blood Pressure No PuiaBoraAna M, PharmD documented as of this encounter Visit Diagnoses Not on filedocumented in this encounter Additional Health Concerns Assessment Noted Time PHQ-9 Depression Total Score: 0 04/10/20 25 11:13 AM EDT documented as of this encounter Care Teams Coil Connector Repairer Relationship Specialty Start Date End Date Name, MD Francis [address] [place] [address] PCP - General Family Medicine 03/15/17 documented as of this encounter
--- OUTSIDE RECORDS SUMMARY | 2025-04-11 10:34 | XMS_ITS | Encounter Summary ---
Author Organization [employer] Address [address] [facility] 7t [place] [address] Care Team Providers Care Fish Cleaner Name Role Phone NameFrancis MD Primary Care Provider [phone] Ana M Gr PharmD Unavailable [phone] Reason for Visit * Reason Onset Date Comments Medication Question 01/01/2023 Encounter Details Date Type Department Care Team ([facility] st Contact Info) Description 01/01/2023 Telephone [facility] MED[facility] [address] [place], [place] [phone] Name, MD Francis [address] [place] [address] Medication Question Social History Tobacco Use Types [...] - 01/01/2023 4:44 PM EDT T/C to [phone] through [employer] id - [id number] for below message, pt. States she is all set. Pt. Advised to give call back on [phone] if any questions or concerns. * Telephone Encounter - Michelle Hernandezz - 01/01/2023 8:20 AM EDT Tc from patient requesting a call back, in regards to medications due to upcoming surgery in March. Patient speaks andorran. documented in this encounter Plan of Treatment Not on file documented as of this encounter Visit Diagnoses Not on filedocumented in this encounter Additional Health Concerns Assessment Noted Time PHQ-9 Depression Total Score: 5 12/01/19 23 10:40 AM EDT documented as of this encounter Care Teams Fish Cleaner Relationship Specialty Start Date End Date Name, MD Francis [address] [place] [address] PCP - General Family Medicine 03/15/17 Ana M Gr PharmD [address] [place] [address] Pharmacist Internal Medicine 02/02/23 04/24/24 documented as of this encounter
--- OUTSIDE RECORDS SUMMARY | 2025-04-11 10:34 | XMS_ITS | Encounter Summary ---
Author Organization [employer] Address [address] [facility] 7t [place] [address] Care Team Providers Care Applied Biology Professor Name Role Phone NameFrancis MD Primary Care Provider [phone] Ana M Gr PharmD Unavailable [phone] Reason for Visit * Reason Onset Date Comments Created In Error 04/02/2024 Encounter Details Date Type Department Care Team ([facility] Contact Info) Description 04/02/[address] [facility] MEDICINE [address] [place], [place] [phone] Name, MD Francis [address] [place] [address] Created In Error Social History Tobacco Use [...] documented as of this encounter Care Teams Applied Biology Professor Relationship Specialty Start Date End Date Name, MD Francis [address] [place] [address] PCP - General Family Medicine 03/15/17 Puia, Ana M, PharmD [address] [place] [address] Pharmacist Internal Medicine 02/02/23 04/24/24 documented as of this encounter
--- OUTSIDE RECORDS SUMMARY | 2025-04-11 10:34 | XMS_ITS | Clinical Summary ---
Author Organization [employer] Address [address] [facility] 7t [place] [address] Care Team Providers Care Lav Crewman Name Role Phone Name, Francis SILVA Primary Care Provider [phone] Allergies No known active allergies Medications * This document contains information received from the source organization and may not represent a complete record from that organization. Fluocinolone Acetonide Scalp ([place]-Smoothe /FS Scalp) 0.01 % oilIndications :Seborrheic dermatitis Apply on damp scalp at evening time and cover with head covering and wash in the morning 118.28 mL 1 023 Active ibuprofen 800 MG tablet TAKE 1 TABLET (800 MG) BY MOUTH 4 TIMES DAILY. 120 tablet 024 Active amLODIPine (Norvasc) 10 MG tablet Take 1 tablet (10 mg) by mouth Once per day. 30 tablet 11 025 2025 Active ketoconazole (NIZOral) 2 % shampoo APPLY TOPICALLY 2 TIMES A WEEK. 120 mL 1 025 Active fluticasone (Flonase) 50 MCG/ACT nasal sprayIndicatio ns:Nasal congestion Administer 2 sprays into each nostril Once per day for 14 days. Shake gently. Before first use, prime pump. After use, clean tip and replace cap. 16 g 025 2024 Active Semaglutide-We ight Management (Wegovy) 0.25 MG/0.5ML solution auto-injector Inject 0.5 mL (0.25 mg) under the skin 1 (one) time per week for 28 days. 2 mL 025 2024 Active erythromycin (Romycin) 5 MG/GM ophthalmic ointmentIndica tions:Hordeolu m externum of right upper eyelid Apply to affected eye(s) 4 times daily for 10 days. Apply Amount per Dose: 0.5 inch (~1 cm) per dose. 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 Shake gently. Before first use, prime pump. After use, clean tip and replace cap. 16 g 2 025 2024 Discontinued(R eorder (will not trigger notification to Pharmacy)) Semaglutide-We ight Management (Wegovy) 0.25 MG/0.5ML solution auto-injector Inject 0.25 mg subcutaneously once a week for weeks 1-4 2 mL 3 025 2024 Discontinued(C ost of medication) Active Problems Problem Noted Date Diagnosed Date Healthcare maintenance 04/10/2025 Assessment & Plan (04/10/2025 1:08 PM EDT): Orders: Chlamydia/N. Gonorrhoeae, PCR, Urine HIV-1/2 Antigen and Antibodies, Fourth Generation, with Reflexes; Future Hepatitis C Antibody with Reflex to HCV, RNA, Quantitative, Real-Time PCR; Future RPR (Monitor) with Reflex to Titer; Future Measles, Mumps, and Rubella (MMR) Antibodies (IgG) Panel, Immune Status; Future Breast screening 04/10/2025 Assessment & Plan (04/10/2025 1:08 PM EDT): Trochanteric bursitis of right hip 04/10/2025 Assessment & Plan (04/10/2025 1:08 PM EDT): Orders: Referral to Orthopaedic Surgery; Future Hordeolum externum of right upper eyelid 025 Assessment & Plan (04/10/2025 1:08 PM EDT): Orders: erythromycin (Romycin) 5 MG/GM ophthalmic ointment; Apply to affected eye(s) 4 times daily for 10 days. Apply Amount per Dose: 0.5 inch (~1 cm) per dose. Strain of lumbar region 02/09/2025 Right elbow tendonitis 02/09/2025 Greater trochanteric bursitis of right hip 02/09 Class 1 obesity due to exces s calories with body mass index (BMI) of 31.0 to 31.9 in adult 02/09/2025 Dietary counseling 02/09/2025 S/P MARITZA (total abdominal hysterectomy) 4 Overview (09/27/2023): At [facility] for treatment of fibroid uterus 08/17/2023 Anxiety [...] of chanoge PLAN: 1. Follow up with [facility]: Not recommended for follow-up 2. Patient goal is to engage in Op therapy and increase coping mechanisms 3. Behavioral Recommendations a. Deep breathing b. Yoga c. OP therapy Hypertension, essential 11/30/2022 Assessment & Plan (04/10/2025 1:08 PM EDT): Orders: Lipid Panel, Standard; Future Comprehensive Metabolic Panel; Future Hemoglobin A1c; Future Seborrheic dermatitis 10/11/2020 Encounters Date Type Department Care Team Description 04/10/2025 10:45 AM EDT Office Visit [facility] [address] [place] [address] Cookie Madrigal NP Hypertension, essential (Primary Dx); Healthcare maintenance; Breast screening; Trochanteric bursitis of right hip; Hordeolum externum of right upper eyelid; Pityriasis lichenoides chronica 04/10/2025 Travel 04/06/2025 2:40 PM EDT Office Visit [facility] [address] [place] [address] Naar Holland ANP Nasal congestion (Primary Dx); Hypertension, essential; Facial pressure 04/06/2025 Travel 04/03/2025 Patient Outreach [facility] [address] [place] [address] Francis Chinchilla MD Pre-visit Planning (SDOH will be completed in office. ) 04/03/2025 Telephone [facility] [address] [place] [address] Francis Chinchilla MD Chart Prep 03/12/2025 Telephone [facility] [address] [place] [address] Francis Chinchilla MD 03/09/2025 Telephone [facility] [address] [place] [address] Francis Chinchilla MD Prior Authorization 02/17/2025 Refill [facility] [address] [place] [address] Francis Chinchilla MD 02/06/2025 1:30 PM EDT Office Visit [facility] [address] [place] [address] Naty Emerson FNP Hypertension, essential (Primary Dx); Dietary counseling; Exercise counseling; Class 1 obesity due to excess calories with body mass index (BMI) of 31.0 to 31.9 in adult, unspecified whether serious comorbidity present 02/06/2025 Travel 02/05/2025 Travel 02/05/2025 Telephone [facility] [address] [place] [address] Jaswant Emersonupe, SANTHOSH Chart Prep 02/02/2025 Telephone [facility] [address] [place] [address] Name, MD Francis Medication Question from Last 3 Months Immunizations Immunization Administration [...] Mass Index 30.57 04/10/2025 11:12 AM EDT Plan of Treatment Health Maintenance Due Date Last Done Comments Family Planning (PISQ) 12/21/1999 HPV Vaccines (1 - 3-dose series) 12/21/1999 Mammogram 2024 COVID-19 Vaccine ( season) 2025 01/03/2021, 11/26/2020 Influenza Vaccine (#1) 2025 , 05/07/2023, 06/04/2019, Additional history exists Lipid Panel 11/15/2025 11/15/2020, 11/15/2020 Disability Screening 02/06/2026 02/06/2025 Alcohol/Substance Use Screening 04/10/2026 04/10/2025 Depression Screening 04/10/2026 04/10/2025, 04/10/20 SDOH Screening 04/10/2026 04/10/2025 Tobacco Screening 04/10/2026 04/10/2025 DTaP/Tdap/Td Vaccines (2 - Td or Tdap) 03/22/2027 03/22/2017 Zoster Vaccines (1 of 2) 2034 RSV Patients and Patients Aged 60 years or older (1 - 1-dose 75+ series) 12/21/2059 HIV Screening Completed 11/15/2020 Hepatitis C Screening Completed 11/15/2020 Hepatitis B Vaccines Completed 06/08/2023, 05/07/20 23 HIB Vaccines Aged Out No longer eligi [...] Years) and At-Risk Patients (6 to 49) Years Aged Out No longer eligible based on [...] Routine 04/06/2025 3:54 PM EDT Facial pressure ZZZ HISTORICAL HEPATITIS C AB W/REFL TO HCV RNA, QN, PCR Routine 11/15/2020 10:11 AM EDT HIV 1/2 ANTIGEN/ANTIBODY, FOURTH GENERATION W/RFL Routine 11/15/2020 10:11 AM EDT LIPID PANEL, STANDARD Routine 11/15/2020 10:11 AM EDT from Last 3 Months or Most Recently Relevant to Health Maintenance Results * Influenza B (ID NOW Rapid Molecular) (04/06/2025 3:54 PM EDT) Influenza B Negative Negative, Indeterminate [facility] Swab 04/06/2025 3:54 PM EDT us Nara Holland ANP POINT OF CARE TEST ENTER/EDIT OR DERABLES Final Result Performing Organization Address [facility]/ZIP Co de Phone Number [facility] [address] [place] [phone] * Influenza A (ID NOW Rapid Molecular) (04/06/2025 3:54 PM EDT) [facility] Influenza A Negative Negative, Indeterminate [facility] Swab 04/06/2025 3:54 PM EDT Nara Holland ANP POINT OF CARE TEST ENTER/EDIT OR DERABLES Final Result Performing Organization Address [facility]/ZIP Co de Phone Number [facility] [address] [place] [phone] * POCT Rapid COVID Ag (04/06/2025 3:54 PM EDT) Rapid COVID Ag Negative [facility] Swab 04/06/2025 3:54 PM EDT us Nara Holland ANP POINT OF CARE TEST ENTER/EDIT OR DERABLES Final Result Performing Organization Address [facility]/ZIP Co de Phone Number [facility] [address] [place] [address] [phone] * HEPATITIS C AB W/REFL TO HCV RNA, QN, PCR (11/15/2020 10:11 AM EDT) HEPATITIS C ANTIBODY NON-REACT OMERO NON-REACT OMERO [facility] INDEX 0.02 <1.00 [facility] Comment: HCV antibody was non-reactive. There is no laboratory evidence of HCV infection. In most cases, no further action is required. However, if recent HCV exposure is suspected, a test for HCV RNA (test code 81934) is suggested. For additional information please refer to http://education.[employer]/faq/TDP86m9 (This link is being provided for informational/ educational purposes only.) 11/15/2020 10:1 1 AM EDT us Francis Name MD HISTORICAL/NON ORDERABLE LABS Fi nal Result [facility] [address] * HIV 1/2 ANTIGEN/ANTIBODY,FOURTH GENERATION W/RFL (11/15/2020 10:11 AM EDT) HIV-1/2 ANTIGEN AND ANTIBODIES, 4TH GENERATION W/ REFLEX NON-REACT OMEOR NON-REACT OMERO [facility] Comment: HIV-1 antigen and HIV-1/HIV-2 antibodies were not detected. There is no laboratory evidence of HIV infection. PLEASE NOTE: This information has been disclosed to you from records whose confidentiality may be protected by state law. If your state requires such protection, then the state law prohibits you from making any further disclosure of the information without the specific written consent of the person to whom it pertains, or as otherwise permitted by law. A general authorization for the release of medical or other information is NOT sufficient for this purpose. For additional information please refer to http://education.[employer]/faq/RNC468 (This link is being provided for informational/ educational purposes only.) The performance of this assay has not been clinically validated in patients less than 2 years old. 11/15/2020 10:1 1 AM EDT Francis Chinchilla MD LAB BLOOD ORDERABLES Final Resul t Performing Organization Address [facility] de Phone Number [facility] [address] * (ABNORMAL) LIPID PANEL, STANDARD (11/15/2020 10:11 AM EDT) Chol/HDLC Ratio 3.9 <5.0 (calc) [facility] Cholesterol, Total 185 <200 mg/dL [facility] HDL Cholesterol 48(L) > OR = 50 mg/dL [facility] LDL Cholesterol 111(H) mg/dL (calc) [facility] Comment: Reference range: <100 Desirable range <100 mg/dL for primary prevention; <70 mg/dL for patients with CHD or diabetic patients with > or = 2 CHD risk factors. LDL-C is now calculated using the Joe calculation, which is a validated novel method providing better accuracy than the Friedewald equation in the estimation of LDL-C. Colin SS et al. ANTONI. 2013;310(19): 1584-4411 (http://education.[employer].GRUZOBZOR/faq/EZH531) Non-HDL Cholesterol 137(H) <130 mg/dL (calc) [facility] Comment: For patients with diabetes plus 1 major ASCVD risk factor, treating to a non-HDL-C goal of <100 mg/dL (LDL-C of <70 mg/dL) is considered a therapeutic option. Triglycerides 143 <150 mg/dL [facility] 11/15/2020 10:1 1 AM EDT Francis Chinchilla MD LAB BLOOD ORDERABLES Final Resul t Performing Organization Address [facility] Co de Phone Number [facility] [address] from Last 3 Months or Most Recently Relevant to Health Maintenance Insurance [facility] C3 Care Teams Lav Crewman Relationship Specialty Start Date End Date Name, MD Francis [address] [place] [phone] PCP - General Family Medicine 03/15/17
--- OUTSIDE RECORDS SUMMARY | 2025-04-11 10:34 | XMS_ITS | Encounter Summary ---
Author Organization [employer] Address [address] [facility] 7t [place] [address] Care Team Providers Care Rolled Seat Trimmer Name Role Phone Name, Francis SILVA Primary Care Provider [phone] Reason for Visit * Reason Onset Date Comments Med Refill 10/30/2024 Encounter Details Date Type Department Care Team ([facility] st Contact Info) Description 10/30/2024 Refill [facility] [address] [place], [place] [phone] Name, MD Francis [address] [place] [address] Hypertension, essential Social History Tobacco Use Types [...] documented as of this encounter Care Teams Rolled Seat Trimmer Relationship Specialty Start Date End Date Name, MD Francis [address] [place] [address] PCP - General Family Medicine 03/15/17 documented as of this encounter
--- OUTSIDE RECORDS SUMMARY | 2025-04-11 10:34 | XMS_ITS | Encounter Summary ---
Author Organization [employer] Address [address] [facility] [address] 7t [place] [address] Care Team Providers Care Chef Instructor Name Role Phone Name, Francis SILVA Primary Care Provider Encounter Details Date Type Department Care Team (Latest Contact Info) Description 04/06/2025 Travel Social History Tobacco Use Types Packs/Day [...] documented as of this encounter Care Teams Chef Instructor Relationship Specialty Start Date End Date Name, MD Francis [address] [place] [address] PCP - General Family Medicine 03/15/17 documented as of this encounter
--- OUTSIDE RECORDS SUMMARY | 2025-04-11 10:34 | XMS_ITS | Encounter Summary ---
Author Organization [employer] Address [address] [facility] 7t [place] [address] Care Team Providers Care Seo Intern Name Role Phone Name, Francis SILVA Primary Care Provider [phone] Reason for Visit * Reason Onset Date Comments Med Refill 06/01/2024 Encounter Details Date Type Department Care Team ([facility] st Contact Info) Description 06/01/2024 Refill [facility]INE [address] [place], [place] [phone] Name, MD Francis [address] [place] [address] Social History Tobacco Use Types Packs/Day Years [...] documented as of this encounter Care Teams Seo Intern Relationship Specialty Start Date End Date Name, MD Francis [address] [place] [address] PCP - General Family Medicine 03/15/17 documented as of this encounter
--- OUTSIDE RECORDS SUMMARY | 2025-04-11 10:34 | XMS_ITS | Clinical Summary ---
Author Organization [employer] Address [address] [place] [address] Care Team Providers Care Panel Assembler Name Role Phone Name, Francis SILVA Primary Care Provider [phone] Surgical History Surgery Date Site/Laterality Comments TUBAL [...] Health Maintenance Due Date Last Done Comments Breast Cancer Screening 1984 DTaP,Tdap,and Td Vaccines (1 - Tdap) 12/21/2003 Hepatitis B Vaccines (1 of 3 - 19+ 3-dose series) 12/21/2003 HIV Screening 07/02/2022 Hepatitis C Screening 07/02/2022 Social Influencers of Health Screening 07/02/2022 Depression Screening 07/23/2024 Cervical Cancer Screening: P ap Smear 09/15/2024 09/15/2021 COVID-19 Vaccine (1 - 2023-2 5 season) 2025 Influenza Vaccine (#1) 2025 RSV Immunization Adult Patie nts (1 - 1-dose 75+ series) 12/21/2059 HIB Vaccines Aged Out No longer eligi [...] 5 Years) and At-Risk Patients (6 to 49 Years) Aged Out No longer eligi ble [...] RESULTING AGENCY - 09/27/2021 1:10 PM EST [id number] THINPREP PAP, IMAGED: NEGATIVE FOR SQUAMOUS INTRAEITHELIAL LESION AND MALIGNANCY. TRICHOMONAS IS PRESENT. NOTE: THE PAP TEST IS A SCREENING TEST WITH AN INHERENT FALSE NEGATIVE RATE. AUTOMATED PRESCREENING OF ALL LIQUID BASED SPECIMENS IS PERFORMED BY THE THINPREP IMAGING SYSTEM UNLESS OTHERWISE STATED. RENETTA GREGORIO(ASCP) (CASE ELECTRONICALLY SIGNED 09 27 2021) RESULT OF APTIMA HIGH RISK HPV ASSAY: HIGH RISK HPV: NEGATIVE (SEROTYPES 16,18,31,33,35,39,45,51,52,56,58,59,66,68) COMPLETED ON 2021-09-19 ADEQUACY: SATISFACTORY ENDOCERVICAL/TRANSFORMATION ZONE COMPONENT ABSENT. SOURCE: THINPREP PAP HPV ANY DX: REFLEX 16 AND 18, CERVICAL, IMAGED CLINICAL INFORMATION: HPV ANY DIAGNOSIS. HORMONES, PAP HX NEGATIVE, Z12.4, Z01.419 Tiarra Zepeda [facility] CYTOLOGY ORDERABLES Final Result HISTORICAL TESTING LAB RESULTING AGENCY from Last 3 Months or Most Recently Relevant to Health Maintenance Care Teams Panel Assembler Relationship Specialty Start Date End Date Name, MD Francis [address] [place] [address] PCP - General 10/26/22
[2025-04-11 11:16] LABS: Hemoglobin A1C 142.7265 umol/L; Total Hemoglobin (HGBA1C) 3647.6095 umol/L
[2025-04-11 11:39] LABS: Alanine Aminotransferase 34 U/L (0-31); Albumin Level 4.4 g/dL (3.5-5.0); Alkaline Phosphatase 106 U/L (39-117); Anion Gap 8 (12-20); Aspartate Amino Transferase 40 U/L (5-31); Blood Urea Nitrogen 8 mg/dL (9-16); Calcium 9.4 mg/dL (8.4-10.2); Carbon Dioxide 29 mmol/L (22-29); Chloride 107 mmol/L (96-108); Cholesterol 227 mg/dL (<200); Estimated Glomerular Filt Rate > 60; HDL Cholesterol 45 mg/dL (>40); Potassium 3.6 mmol/L (3.3-5.1); Sodium 140 mmol/L (135-145); Total Protein 7.4 g/dL (6.5-8.0); Triglycerides 242 mg/dL (<150)
[2025-04-11 11:57] LABS: HIV Num 1 0.05 S/CO (0.00-0.99); ~HepC Num1 0.16 S/CO (0.00-0.79); ~Hepatitis C Antibody Nonreactive (Nonreactive)
[2025-04-13 22:13] LABS: Rubeola IgG (Measles) >300.00 AU/mL
== END 2025-04-11 10:30 | disposition home or self-care (01) ==
LOC: HO.LAB 10:29
PROVIDERS: PCP Nurse Practitioner Family; Visit Provider Nurse Practitioner Family
DX: Z00.00 Encounter for general adult medical examination without abnormal findings (principal); I10 Essential (primary) hypertension; Z11.4 Encounter for screening for human immunodeficiency virus [HIV]
CPT/HCPCS: 36415; 80053; 80061; 83036; 86592; 86735; 86762; 86765; 86803; 87389

== ENCOUNTER 2025-04-16 14:31 | Outpatient (REF) | payer MEDICAID, SELFPAY ==
[2025-04-16 17:52] LABS: CT PCR Urine NOT DETECTED (Not Detect.); NG PCR Urine NOT DETECTED (Not Detect.)
--- OUTSIDE RECORDS SUMMARY | 2025-04-16 18:53 | XMS_ITS | Encounter Summary ---
Author Organization [employer] Address [address] [facility] [address] 7t [place] [address] Care Team Providers Care Potter Or Ceramic Artist Name Role Phone Name, Francis SILVA Primary Care Provider [phone] Encounter Details Date Type Department Care Team ([facility] st Contact Info) Description 04/13/2025 Results Follow-Up [facility] [address] [place], [place] [phone] Cookie Madrigal, ANNABELLA [address] [place] [address] HIV-1/2 Antigen and Antibodies, Fourth Generation, with Reflexes, Hepatitis C Antibody with Reflex to HCV, RNA, Quantitative, Real-Time PCR, Lipid Panel, Standard, Additional followed-up results: 4 Social History Tobacco Use Types Packs/Day Years [...] as of this encounter Miscellaneous Notes * Result Encounter Note - Cookie Madrigal NP - 04/13/2025 9:20 AM EDT It was a pleasure to see you. Your blood work is overall normal. Slightly elevated cholesterol (focus on minimizing processed foods and exercise), pre diabetes and mildly elevated liver function. We will repeat labs in 6 months. Please reach out with any questions. documented in this encounter Plan of Treatment Upcoming Encounters Date Type Department Care Team (Late st Contact Info) Description 06/30/2025 4:00 PM EST Office Visit [facility] [address] [place] [address] Name, MD Francis [address] [place] [address] documented as of this encounter Goals Goal Patient Goal Type Associated Problems Recent Progress Patient-Stated? Author Blood Pressure < 140/90 Blood Pressure 140/92( 025 11:12 AM EDT) No Puia, Ana M, PharmD Record your blood pressure two to three times weekly Blood Pressure No Puarmando Ana M, PharmD documented as of this encounter Visit Diagnoses Not on filedocumented in this encounter Additional Health Concerns Assessment Noted Time PHQ-9 Depression Total Score: 0 04/10/20 25 11:13 AM EDT documented as of this encounter Care Teams Potter Or Ceramic Artist Relationship Specialty Start Date End Date Name, MD Francis [address] [place] [address] PCP - General Family Medicine 03/15/17 documented as of this encounter
--- OUTSIDE RECORDS SUMMARY | 2025-04-16 18:53 | XMS_ITS | Encounter Summary ---
Author Organization [employer] Address [address] [facility] 7t [place] [address] Care Team Providers Care Stone Hand Name Role Phone NameFrancis MD Primary Care Provider [phone] Ana M Gr PharmD Unavailable [phone] Reason for Visit * Reason Onset Date Comments Medication Question 01/01/2023 Encounter Details Date Type Department Care Team ([facility] st Contact Info) Description 01/01/2023 Telephone [facility] [address] [place], [place] [phone] Name, MD Francis [address] [place] [address] Medication Question Social History Tobacco Use Types [...] - 01/01/2023 4:44 PM EDT T/C to [phone] through [employer] id - [id number] for below message, pt. States she is all set. Pt. Advised to give call back on [phone] if any questions or concerns. * Telephone Encounter - Michelle Scott - 01/01/2023 8:20 AM EDT Tc from patient requesting a call back, in regards to medications due to upcoming surgery in March. Patient speaks icelandic. documented in this encounter Plan of Treatment Upcoming Encounters Date Type Department Care Team (Late st Contact Info) Description 06/30/2025 4:00 PM EST Office Visit [facility] [address] [place] [phone] Name, MD Francis [address] [place] [address] documented as of this encounter Visit Diagnoses Not on filedocumented in this encounter Additional Health Concerns Assessment Noted Time PHQ-9 Depression Total Score: 5 12/01/19 23 10:40 AM EDT documented as of this encounter Care Teams Stone Hand Relationship Specialty Start Date End Date Name, MD Francis [address] [place] [address] PCP - General Family Medicine 03/15/17 Ana M Gr PharmD [address] [place] [address] Pharmacist Internal Medicine 02/02/23 04/24/24 documented as of this encounter
--- OUTSIDE RECORDS SUMMARY | 2025-04-16 18:53 | XMS_ITS | Clinical Summary ---
Author Organization [employer] Address [address] [facility] 7t [place] [address] Care Team Providers Care Director Of Strategy & Mobile Name Role Phone Name, Francis SILVA Primary Care Provider [phone] Allergies No known active allergies Medications * This document contains information received from the source organization and may not represent a complete record from that organization. Fluocinolone Acetonide Scalp ([place] /FS Scalp) 0.01 % oilIndications :Seborrheic dermatitis [...] (total abdominal hysterectomy) 4 Overview (09/27/2023): At [facility] for treatment of fibroid uterus 08/17/2023 [...] Encounters Date Type Department Care Team Description 04/15/[address] [address] Francis Chinchilla MD Prior Authorization 04/14/[address] [address] Francis Chinchilla MD Letter for School/Work 04/13/2025 Results Follow-Up [address] [address] Cookie Madrigal NP HIV-1/2 Antigen and Antibodies, Fourth Generation, with Reflexes, Hepatitis C Antibody with Reflex to HCV, RNA, Quantitative, Real-Time PCR, Lipid Panel, Standard, Additional followed-up results: 4 04/10/2025 10:45 AM EDT Office Visit [address] [address] Cookie Madrigal NP Hypertension, essential (Primary Dx); Healthcare maintenance; Breast screening; Trochanteric bursitis of right hip; Hordeolum externum of right upper eyelid; Pityriasis lichenoides chronica 04/10/2025 Travel 04/06/2025 2:40 PM EDT Office Visit [facility] [address] [place] [address] Nara Holland ANP Nasal congestion (Primary Dx); Hypertension, essential; Facial pressure 04/06/2025 Travel 04/03/2025 Patient Outreach [facility] [address] [place] [address] Francis Chinchilla MD Pre-visit Planning (SDOH will be completed in office. ) 04/03/2025 Telephone [facility] [address] [place] [address] Francis Chinchilla MD Chart Prep 03/12/[address] [address] Francis Chinchilla MD 03/09/[address] [address] Francis Chinchilla MD Prior Authorization 02/17/2025 Refill [facility] [address] [place] [address] Name, MD Francis 02/06/2025 1:30 PM EDT Office Visit [facility] [address] [facility] [place] [address] Naty Emerson FNP Hypertension, essential (Primary Dx); Dietary counseling; Exercise counseling; Class 1 obesity due to excess calories with body mass index (BMI) of 31.0 to 31.9 in adult, unspecified whether serious comorbidity present 02/06/2025 Travel 02/05/2025 Travel 02/05/2025 Telephone [facility] [address] [place] [address] Naty Emerson FNP Chart Prep 02/02/[address] [facility] [address] [place] [address] NameFrancis MD Medication Question from Last 3 Months Immunizations [...] 04/10/2025 11:12 AM EDT Plan of Treatment Upcoming Encounters Date Type Department Care Team (Late st Contact Info) Description 06/30/2025 4:00 PM EST Office Visit [facility] [address] [place] [address] Name, MD Francis [address] [place] [address] Health Maintenance Due Date Last Done Comments Family Planning (PISQ) 12/21/1999 HPV Vaccines (1 - 3-dose series) 12/21/1999 Mammogram 2024 COVID-19 Vaccine (3 - 2024- season) 2025 01/03/2021, 11/26/2020 Influenza Vaccine (#1) 2025 , 05/07/2023, 06/04/2019, Additional history exists Disability Screening 02/06/2026 02/06/2025 Alcohol/Substance Use Screening 04/10/2026 04/10/2025 Depression Screening 04/10/2026 04/10/2025, 04/10/20 25 SDOH Screening 04/10/2026 04/10/2025 Tobacco Screening 04/10/2026 04/10/2025 Diabetes: Hemoglobin A1C 04/11/2026 025, 02/28/2024, 11/15/2020, Additional history exists DTaP/Tdap/Td Vaccines (2 - Td or Tdap) 03/22/2027 03/22/2017 Lipid Panel 04/11/2030 04/11/2025, 10/22, 11/15/2020 Zoster Vaccines (1 of 2) 2034 RSV Patients and Patients Aged 60 years or older (1 - 1-dose 75+ series) 12/21/2059 Hepatitis B Vaccines Completed 06/08/2023, 05/07/20 23 HIV Screening Completed 04/11/2025, 11/15/2020 Hepatitis C Screening Completed 04/11/2025, 021 HIB Vaccines Aged Out No longer eligi [...] Procedure Name Priority Date/Time Associated Diagnosis Comments CHLAMYDIA/TRICHOMONAS/ NEISSERIA GONORRHOEAE, PCR, URINE Routine 04/16/2025 2:40 PM EDT Healthcare maintenance MEASLES, MUMPS, AND RUBELLA (MMR) AB (IGG) PANEL, IMMUNE STATUS Routine 04/11/2025 10:45 AM EDT Healthcare maintenance HEMOGLOBIN A1C Routine 04/11/2025 10:45 AM EDT Hypertension, essential COMPREHENSIVE METABOLIC PANEL Routine 04/11/2025 10:45 AM EDT Hypertension, essential LIPID PANEL, STANDARD Routine 04/11/2025 10:45 AM EDT Hypertension, essential RPR (MONITOR) W/REFL TITER Routine 04/11/2025 10:45 AM EDT Healthcare maintenance HEPATITIS C AB W/REFL TO HCV RNA, QN, PCR Routine 04/11/2025 10:45 AM EDT Healthcare maintenance HIV 1/2 ANTIGEN/ANTIBODY, FOURTH GENERATION W/RFL Routine 04/11/2025 10:45 AM EDT Healthcare maintenance POCT INFLUENZA B (ID NOW RAPID MOLECULAR) Routine 04/06/2025 3:54 PM EDT Facial pressure POCT INFLUENZA A (ID NOW RAPID MOLECULAR) Routine 04/06/2025 3:54 PM EDT Facial pressure POCT RAPID COVID ANTIGEN Routine 04/06/2025 3:54 PM EDT Facial pressure from Last 3 Months Results * Chlamydia/N. Gonorrhoeae, PCR, Urine (04/16/2025 2:40 PM EDT) CT PCR, Urine NOT DETECTED Not Detect. [facility] Comment:A not detected test result does not exclude the possibilityof infection because test results can be affected byimproper specimen collection, concurrent antibiotic therapy,or the number of organisms in the specimen which may bebelow the sensitivity of the test. As with many diagnostictests, results from the Xpert CT/NG assay should beinterpreted in conjunction with other laboratory andclinical data available to the clinician.The Xpert CT/NG assay should not be used for the evaluationof suspected sexual abuse or for other medico-legalindications. Additional testing is recommended in anycircumstance when false positive or false negative resultscould lead to adverse medical, social or psychologicalconsequences. NG PCR, Urine NOT DETECTED Not Detect. [facility] Comment:A not detected test result does not exclude the possibilityof infection because test results can be affected byimproper specimen collection, concurrent antibiotic therapy,or the number of organisms in the specimen which may bebelow the sensitivity of the test. As with many diagnostictests, results from the Xpert CT/NG assay should beinterpreted in conjunction with other laboratory andclinical data available to the clinician.The Xpert CT/NG assay should not be used for the evaluationof suspected sexual abuse or for other medico-legalindications. Additional testing is recommended in anycircumstance when false positive or false negative resultscould lead to adverse medical, social or psychologicalconsequences. Urine (Urine, Random) 04/16/2025 2:40 PM EDT 04/16/2025 4:02 PM EDT us Cookie Madrigal NP LAB URINE ORDERABLES Final Resul t [facility] [address] [place] [phone] [phone] * Measles, Mumps, and Rubella (MMR) Antibodies??(IgG) Panel, Immune Status (04/11/2025 10:45 AM EDT) Mumps Virus IgG Antibody 55.90 AU/mL [facility] Comment:AU/mL Interpretation ------- <9.00 Not consistent with immunity9.00-10.99 Equivocal>10.99 Consistent with immunityThe presence of mumps IgG antibody suggests immunizationor past or current infection with mumps virus. Rubella IgG Antibody 2.92 Index [facility] Comment:Index Interpretation ----- <0.90 Not consistent with immunity 0.90-0.99 Equivocal > or = 1.00 Consistent with immunityThe presence of rubella IgG antibody suggestsimmunization or past or current infection withrubella virus.THIS TEST WAS PERFORMED AT:[facility] [place] [phone] GARG MD Rubeola IgG (Measles) >300.00 AU/mL [facility] Comment:AU/mL Interpretation ----- <13.50 Not consistent with nylkdlnz54.50-16.49 Equivocal>16.49 Consistent with immunityThe presence of measles IgG suggests immunization orpast or current infection with measles virus.For additional information, please refer tohttp://education.Evolero/faq/PAI757(This link is being provided for informational/educational purposes only.) Blood Venous blood specimen / Unknown 04/11/2025 10:45 AM EDT 04/11/2025 10:45 AM EDT us Cookie Madrigal NP LAB BLOOD ORDERABLES Final Resul t [facility] [address] [place] [phone] [phone] * Hepatitis C Antibody with Reflex to HCV, RNA, Quantitative, Real-Time PCR (04/11/2025 10:45 AM EDT) Pathologist [facility] [place] Hepatitis C Antibody Nonreactive Nonreactive [facility] Comment:Antibodies to HCV no t detected; does not exclude early acuteHCV infection. Blood Venous blood specimen / Unknown 04/11/2025 10:45 AM EDT 04/11/2025 10:45 AM EDT us Cookie Madrigal ANODE BUILDER LAB BLOOD ORDERABLES Final Resul t Performing Organization Address [facility]/ZIP Co de Phone Number [facility] [address] [place] [phone] * RPR (Monitor) with Reflex to??Titer (04/11/2025 10:45 AM EDT) Pathologist [facility] [place] RPR (Monitor) w/Refl Titer NON-REACTI VE NON-REACT OMERO [facility] Comment:THIS TEST WAS PERFOR MED AT:[facility] [place] [phone] GARG MD Rapid Plasma Reagin Ab Titer TNP [facility] Blood Venous blood specimen / Unknown 04/11/2025 10:45 AM EDT 04/11/2025 10:45 AM EDT us Cookie Madrigal ANODE BUILDER LAB BLOOD ORDERABLES Final Resul t Performing Organization Address [facility]/ZIP Co de Phone Number [facility] [address] [place] [phone] * HIV-1/2 Antigen and Antibodies, Fourth Generation, with Reflexes (04/11/2025 10:45 AM EDT) Pathologist [facility] [place] HIV AB/AG Nonreactive Nonreactive [facility] Comment:HIV-1 p24 Ag and/or HIV-1/HIV-2 Ab not detected.A test result that is nonreactive does not exclude thepossibility of exposure to or infection with HIV-1 and/orHIV-2. Nonreactive results in this assay for individualswith prior exposure to HIV-1 and/or HIV-2 may be due toantigen and antibody levels that are below the limit ofdetection of this assay.The Mobile[employer]ity HIV Ag/Ab Combo assay result andsupplemental assay results should be interpreted inconjunction with the patient's clinical presentation,history and other laboratory results. If the results areinconsistent with clinical evidence, additional testing issuggested to confirm the result. Blood Venous blood specimen / Unknown 04/11/2025 10:45 AM EDT 04/11/2025 10:45 AM EDT us Cookie Madrigal NP LAB BLOOD ORDERABLES Final Resul t Performing Organization Address [facility]/ZIP Co de Phone Number [facility] [address] [place] [phone] * Hemoglobin A1c (04/11/2025 10:45 AM EDT) Hemoglobin A1c 5.7 <6.0 % [facility] Comment:Hemoglobin A1C Refer ence Range Adults: 4.8 - 6.0 % Non diabetic: < 6.0 % Goal: < 7.0 %Additional Action Suggested: > 8.0 %Note: Hemoglobin A1c results are invalid for patients with abnormal amounts of HbF. Blood transfusions may impact the HbA1c concentration in the patient sample. Estimated Average Glucose 117 mg/dL [facility] Comment:eAG = Estimated ave rage glucose which is %A1C expressed asaverage glucose, using the formula of the J5X-EobonhpDinbwyh Glucose study (ADAG), Diabetes Care, Vol.31,#8,2007 Blood Venous blood specimen / Unknown 04/11/2025 10:45 AM EDT 04/11/2025 10:45 AM EDT us Cookie Madrigal NP LAB BLOOD ORDERABLES Final Resul t Performing Organization Address [facility]/ZIP Co de Phone Number [facility] [address] [place] [phone] * (ABNORMAL) Lipid Panel, Standard (04/11/2025 10:45 AM EDT) Triglycerides 242(H) <150 mg/dL [facility] Comment:Desirable Triglyceri de: less than 150 mg/dLBorderline High Triglyceride 150-199 mg/dLHigh Triglyceride: 200-499 mg/dLVery High Triglyceride: greater than or equal to 5OO mg/dL Cholesterol 227(H) <200 mg/dL [facility] Comment:Desirable Cholestero l: less than 200 mg/dLBorderline High Cholesterol: 200-239 mg/dLHigh Cholesterol: greater than 239 mg/dL LDL Cholesterol Calculated 134(H) <100 mg/dL [facility] Comment:Desirable LDL: less than 100 mg/dLNear Optimal/Above Optimal LDL: 110- 129 mg/dLBorderline High LDL: 130-159 mg/dLHigh LDL: 160-189 mg/dLVery High LDL: greater than or equal to 190 mg/dL HDL Cholesterol 45 >40 mg/dL [facility] Comment:Desirable HDL: great er than 40 mg/dL Note: This HDL assay may give artificially low results in patients with liver disease. Blood Venous blood specimen / Unknown 04/11/2025 10:45 AM EDT 04/11/2025 10:45 AM EDT us Cookie Madrigal ANODE BUILDER LAB BLOOD ORDERABLES Final Resul t [facility] [address] [place] [phone] * (ABNORMAL) Comprehensive Metabolic Panel (04/11/2025 10:45 AM EDT) Sodium 140 135 - 145 mmol/L [facility] Potassium 3.6 3.3 - 5.1 mmol/L [facility] Chloride 107 96 - 108 mmol/L [facility] Carbon Dioxide 29 22 - 29 mmol/L [facility] Anion Gap 8(L) 12 - 20 [facility] Urea Nitrogen (BUN) 8(L) 9 - 16 mg/dL [facility] Creatinine, Serum 0.68 0.5 - 1.4 mg/dL [facility] Estimated Glomerular Filt Rate >60 [facility] Comment:Chronic Kidney Disea se: Estimated GFR < 60 mL/min/1.46e1Ylpczm Kidney Disease: Estimated GFR < 15 mL/min/1.73m2 Glucose 81 60 - 115 mg/dL [facility] Calcium 9.4 8.4 - 10.2 mg/dL [facility] Bilirubin, Total 0.3 0.0 - 1.0 mg/dL [facility] Aspartate Amino Transferase 40(H) 5 - 31 U/L [facility] Alanine Aminotransferase 34(H) 0 - 31 U/L [facility] Total Protein 7.4 6.5 - 8.0 g/dL [facility] Albumin Level 4.4 3.5 - 5.0 g/dL [facility] Alkaline Phosphatase 106 39 - 117 U/L [facility] Blood Venous blood specimen / Unknown 04/11/2025 10:45 AM EDT 04/11/2025 10:45 AM EDT Cookie Madrigal NP LAB BLOOD ORDERABLES Final Resul t Performing Organization Address City/[facility]/ZIP Co de Phone Number [facility] [address] [place] [phone] [phone] * Influenza B (ID NOW Rapid Molecular) (04/06/2025 3:54 PM EDT) Influenza B Negative Negative, Indeterminate [facility] Swab 04/06/2025 3:54 PM EDT us Nara MURPHY POINT OF CARE TEST ENTER/EDIT OR DERABLES Final Result Performing Organization Address [facility]/ZIP Co de Phone Number [facility] [address] [place] [phone] [phone] * Influenza A (ID NOW Rapid Molecular) (04/06/2025 3:54 PM EDT) Influenza A Negative Negative, Indeterminate [facility] Swab 04/06/2025 3:54 PM EDT Nara Holland ANP POINT OF CARE TEST ENTER/EDIT OR DERABLES Final Result Performing Organization Address City/[facility]/ZIP Co de Phone Number [facility] [address] [place] [phone] [phone] * POCT Rapid COVID Ag (04/06/2025 3:54 PM EDT) Rapid COVID Ag Negative [facility] Swab 04/06/2025 3:54 PM EDT [facility] Holland ANP POINT OF CARE TEST ENTER/EDIT OR DERABLES Final Result Performing Organization Address [facility] Co de Phone Number [facility] [address] [place] [address] [phone] from Last 3 Months Insurance C3 Care Teams Director Of Strategy & Mobile Relationship Specialty Start Date End Date Name, MD Francis [address] [place] [phone] PCP - General Family Medicine 03/15/17
--- OUTSIDE RECORDS SUMMARY | 2025-04-16 18:53 | XMS_ITS | Encounter Summary ---
Author Organization [employer] Address [address] [facility] 7t [place] [address] Care Team Providers Care Research And Development Specialist Name Role Phone NameFrancis MD Primary Care Provider [phone] Ana M Gr PharmD Unavailable [phone] Reason for Visit * Reason Onset Date Comments Created In Error 04/02/2024 Encounter Details Date Type Department Care Team ([facility] Contact Info) Description 04/02/2024 Telephone [facility] [address] [place], [place] [phone] Name, MD Francis [address] [place] [address] Created In Error Social History Tobacco Use [...] as of this encounter Plan of Treatment Upcoming Encounters Date Type Department Care Team (Late st Contact Info) Description 06/30/2025 4:00 PM EST Office Visit [facility] [address] [place] [address] NameFrancis MD [address] [place] [address] documented as of this encounter Goals Goal [...] Time PHQ-9 Depression Total Score: 0 02/25/20 3:01 PM EDT documented as of this encounter Care Teams Research And Development Specialist Relationship Specialty Start Date End Date Francis Chinchilla MD [address] [place] [phone] PCP - General Family Medicine 03/15/17 Puia, Ana M, PharmD [address] [place] [phone] Pharmacist Internal Medicine 02/02/23 04/24/24 documented as of this encounter
--- OUTSIDE RECORDS SUMMARY | 2025-04-16 18:53 | XMS_ITS | Encounter Summary ---
Author Organization [employer] Address [address] [facility] 7t [place] [address] Care Team Providers Care Applied Mathematician Name Role Phone Name, Francis SILVA Primary Care Provider [phone] Reason for Visit * Reason Onset Date Comments Med Refill 10/30/2024 Encounter Details Date Type Department Care Team ([facility] st Contact Info) Description 10/30/2024 Refill [facility] [address] [place], [place] [phone] Name, MD Francis [address] [place] [address] Hypertension, essential Social History Tobacco Use Types [...] 4:00 PM EST Office Visit [facility] [address] [place] [phone] NameFrancis MD [address] [place] [phone] documented as of this encounter Goals Goal [...] as of this encounter Care Teams Applied Mathematician Relationship Specialty Start Date End Date NameFrancis MD [address] [place] [phone] PCP - General Family Medicine 03/15/17 documented as of this encounter
--- OUTSIDE RECORDS SUMMARY | 2025-04-16 18:53 | XMS_ITS | Encounter Summary ---
Author Organization [employer] Address [address] [facility] 7t [place] [address] Care Team Providers Care Data Processing Specialist Name Role Phone Name, Francis SILVA Primary Care Provider Reason for Visit * Reason Onset Date Comments Letter for School/Work 04/14/2025 Encounter Details Date Type Department Care Team ([facility] Contact Info) Description 04/14/[address] [facility] [address] [place], [place] [phone] Name, MD Francis [address] [place] [address] Letter for School/Work Social History Tobacco Use Types Packs/Day Years [...] encounter Miscellaneous Notes * Telephone Encounter - Pamela Burnett - 04/14/2025 8:23 AM EDT Tc from pt requesting a letter for work excusing her for yesterday as she had a physical apt . Pt requesting a call when ready for waste picker Contact pt at [phone] documented in this encounter Plan of Treatment Upcoming Encounters Date Type Department Care Team (Late st Contact Info) Description 06/30/2025 4:00 PM EST Office Visit [facility] [address] [place] [address] Name, MD Francis [address] [place] [address] documented as of this encounter Goals Goal [...] documented as of this encounter Care Teams Data Processing Specialist Relationship Specialty Start Date End Date Name, MD Francis [address] [place] [address] PCP - General Family Medicine 03/15/17 documented as of this encounter
--- OUTSIDE RECORDS SUMMARY | 2025-04-16 18:53 | XMS_ITS | Encounter Summary ---
Author Organization [employer] Address 75 [facility] 7t [place] [address] Care Team Providers Care Clinical Laboratory Scientist Name Role Phone Name, Francis SILVA Primary Care Provider [phone] Reason for Visit * Reason Onset Date Comments Prior Authorization 04/15/2025 Encounter Details Date Type Department Care Team ([facility] st Contact Info) Description 04/15/[address] [facility] [address] [place], [place] [phone] Name, MD Francis [address] [place] [address] Prior Authorization Social History Tobacco Use Types Packs/Day Years [...] encounter Miscellaneous Notes * Telephone Encounter - Rosalva Hope - 04/15/2025 10:12 AM EDT PA for Wegovy generated and sent to PCP for signature via [employer]. Once signed, will be faxed to [employer] and sent to scan. If patient calls to check status on above, please advise them to contact Pharmacy . * Telephone Encounter - Rosalva Hope - 04/15/2025 10:12 AM EDT ----- Message from Cookie Madrigal sent at 04/10/2025 11:52 AM EDT ----- Please try for wegovy, pt intolerant of zepbound due to severe acid reflux, that did not improve and only worsened over therapy documented in this encounter Plan of Treatment Upcoming Encounters Date Type Department Care Team (Late st Contact Info) Description 06/30/2025 4:00 PM EST Office Visit [facility] [address] [place] [phone] Name, MD Francis [address] [place] [address] documented as of this encounter Goals Goal [...] documented as of this encounter Care Teams Clinical Laboratory Scientist Relationship Specialty Start Date End Date Name, MD Francis [address] [place] [address] PCP - General Family Medicine 03/15/17 documented as of this encounter
--- OUTSIDE RECORDS SUMMARY | 2025-04-16 18:53 | XMS_ITS | Encounter Summary ---
Author Organization [employer] Address [address] [facility] 7t [place] [address] Care Team Providers Care Sewing Machine Attachment Tester Name Role Phone Name, Francis SILVA Primary Care Provider [phone] Reason for Visit * Reason Onset Date Comments Med Refill 06/01/2024 Encounter Details Date Type Department Care Team ([facility] st Contact Info) Description 06/01/2024 Refill [facility] [address] [place], [place] [phone] Name, MD Francis [address] [place] [address] Social History Tobacco Use Types Packs/Day Years [...] Description 06/30/2025 4:00 PM EST Office Visit [facility] [address] [place] [phone] Name, MD Francis [address] [place] [address] documented as of this encounter Goals Goal [...] documented as of this encounter Care Teams Sewing Machine Attachment Tester Relationship Specialty Start Date End Date NameFrancis MD [address] [place] [phone] PCP - General Family Medicine 03/15/17 documented as of this encounter
--- OUTSIDE RECORDS SUMMARY | 2025-04-16 18:53 | XMS_ITS | Encounter Summary ---
Author Organization [employer] Address [address] [place] [address] Care Team Providers Care Ash Handler Name Role Phone Name, Francis SILVA Primary Care Provider [phone] Reason for Visit * Reason Onset Date Comments Med Refill 06/29/2024 Encounter Details Date Type Department Care Team ([facility] st Contact Info) Description 06/29/2024 Refill [facility] [address] [place], [place] [id number] Name, MD Francis [address] [place] [address] Social History Tobacco Use Types Packs/Day Years [...] Description 06/30/2025 4:00 PM EST Office Visit [facility] [address] [place] [phone] Name, MD Francis [address] [place] [id number] documented as of this encounter Goals Goal [...] documented as of this encounter Care Teams Ash Handler Relationship Specialty Start Date End Date Name, MD Francis [address] [place] [phone] PCP - General Family Medicine 03/15/17 documented as of this encounter
== END 2025-04-16 14:32 | disposition home or self-care (01) ==
LOC: HO.HHCL 14:31
PROVIDERS: PCP Nurse Practitioner Family; Visit Provider Nurse Practitioner Family
DX: Z11.3 Encounter for screening for infections with a predominantly sexual mode of transmission (principal); Z11.8 Encounter for screening for other infectious and parasitic diseases
CPT/HCPCS: 87491; 87591